=== PATIENT | female | born 1995 | race Caucasian/White ===

== ENCOUNTER → 2018-10-12 16:33 | Outpatient (CLI) | payer MEDICAID, SELFPAY | PROVIDERS: Family Provider Preventive Medicine Occupational Medicine; PCP Preventive Medicine Occupational Medicine; Referring Provider Otolaryngology Otolaryngology/Facial Plastic Surgery; Visit Provider Otolaryngology Otolaryngology/Facial Plastic Surgery | DX: J03.90 Acute tonsillitis, unspecified (principal) | CPT/HCPCS: 87070 ==

== ENCOUNTER 2018-10-17 15:44 | Emergency (ER) | payer MEDICAID, SELFPAY ==
[2018-10-17 15:44] VITALS: BP 152/74; PULSE 100; RESP 18; TEMP 36.6; O2SAT 98; BMI 36.6
--- NOTE | 2018-10-17 16:05 | RAD_ITS ---
STUDY: X-RAY CHEST REASON FOR EXAM: Female, 23 years old. Chest and back pain radiating into the arms for several months TECHNIQUE: PA and lateral views of the chest. COMPARISON: None. FINDINGS: The lungs are clear and expanded. There is no demonstrated pleural abnormality. Normal size heart. Normal mediastinum and benedict. Normal visualized pulmonary arteries. Normal visualized aortic arch and descending thoracic aorta. There are spondylosis degenerative changes of the visualized thoracic spine. Normal visualized ribs, clavicles, and shoulders. There is no demonstrated abnormality of the visualized soft tissue structures of the upper abdomen. RAD/Chest PA and Lateral IMPRESSION: Nonacute x-ray examination of the chest. Electronically Signed: Ernesto Zazueta MD at 17:38 EST , Service support ,
--- NOTE | 2018-10-17 16:05 | EKG12_ITS ---
Test Reason : CP Blood Pressure : / mmHG Vent. Rate : 101 BPM Atrial Rate : 101 BPM P-R Int : 152 ms QRS Dur : 076 ms QT Int : 340 ms P-R-T Axes : 042 008 032 degrees QTc Int : 440 ms Sinus tachycardia Otherwise normal ECG Confirmed by SMOOTH JARA, JARRED ([id number]), writer editor EUGENE FELICIANO ([id number]) on 10/19/2018 8:54:19 AM Referred By: Ankit Worrell Confirmed By:JARRED REBOLLAR MD
--- NOTE | 2018-10-17 16:14 | PCA ---
NO OLD EKG
[2018-10-17 16:15] VITALS: O2SAT 96
--- NOTE | 2018-10-17 16:32 | ED.VISSUMM ---
- ER Visit Summary Date of Service: 10/17/18 Chief Complaint: Chest pain History of Present Illness: The patient is a 23 F who presents with chest pain that has been intermittent for the past month. Patient states that last approximately an hour when it comes on. Patient describes the pain is burning, stabbing, and pressure. Patient states pain is worse over the left side of her chest but states it is always across her chest. Patient states nothing makes it better or worse. Patient admits to some shortness of breath with the pain and some mild diaphoresis. Patient also admits to subjective fever recently. Patient states her fever was 98 at home. Patient states she has a history of reflux. Patient also admits to some lightheadedness and palpitations. Patient also complains of some mild right leg pain. Patient states her right leg feels swollen. Physical Examination: Vital signs are stable. Patient is afebrile. Patient is in no acute distress. Oral mucosa is pink and moist. Neck is supple. Trachea is midline. There is no JVD noted. Heart was regular rate and rhythm. Lungs are clear and equal bilaterally. There is good respiratory effort noted. Abdomen is soft. Bowel sounds are normal. There is no tenderness. Extremities are intact x4. There is some mild tenderness over the right calf. Cranial nerves II through XII are intact. There are no focal motor or sensory deficits noted. The remaining physical exam is within normal limits. Test Results: EKG showed normal sinus rhythm with a rate of 101. There are no acute ST or T wave changes. There are no prior EKGs available for comparison. CBC was normal. Basic metabolic profile showed a slight hypokalemia of 3.4 and a hyperchloremia of 108. Troponin and d-dimer were normal. PA and lateral chest x-ray does not show any acute cardiopulmonary process. Emergency Department Course and Treatment: Patient was resting comfortably on reevaluation. Patient was instructed to follow-up with her primary care physician in 5-7 days. Patient has a HEART score of 0. Patient was advised that this is not likely to be a cardiac etiology. Patient was instructed to return if worse in any way. Patient understood and was agreeable with the plan. All questions were answered. Disposition: Discharged home Impression: Chest pain of uncertain etiology This note was generated with [employer] dictation software. It may contain incorrect words, spelling, and punctuation that were not noted in review of the chart prior to signing ED Disposition - Plan for ED Patient: Disposition: Home or Assisted Living Chief Complaint: Chest Other Diagnosis: Chest pain of uncertain etiology Instructions: ED Chest Pain Atypical Unkn Cause Referrals: Junior Hoover DO [Primary Care Provider] -
[2018-10-17 16:34] LABS: Absolute Lymphocyte Count 2.54 X10^3/ul (0.83-4.51); Basophil# 0.01 X10^3/uL; Basophil% 0.1 % (0-1); Eosinophil# 0.05 X10^3/uL; Eosinophils% 0.5 % (0-5); Hematocrit 42.9 % (37-47); Hemoglobin 13.6 g/dl (12.0-15.0); Lymphocyte # 2.54 X10^3/ul (4.0); Lymphocyte % 27.5 % (19-41); Mean Corp Hgb Conc 31.7 g/gl (32-36); Mean Corpuscular Hgb 27.9 pg (27.0-32.0); Mean Corpuscular Volume 88.1 fL (81-99); Mean Platelet Vol. 9.9 fl (6.2-12.0); Monocyte# 0.61 X10^3/uL; Monocyte% 6.6 % (0-10); Neutrophil # 6.01 X10^3/uL (2.7-7.7); Neutrophil % 65.2 % (47-70); POSITIVE COUNT NO; POSITIVE DIFFERENTIAL NO; POSITIVE MORPHOLOGY NO; Platelet Count 309 K/mm3 (150-450); RBC Distribution Width CV 13.8 % (11.6-14.6); RBC Distribution Width SD 44.5 fl (35.1-43.9); Red Blood Count 4.87 M/mm3 (4.2-5.4); White Blood Count 9.2 K/mm3 (4.4-11.0)
[2018-10-17 16:41] LABS: Prothrombin Time (Protime)PT. 13.4 SECONDS (11.7-14.9)
[2018-10-17 16:42] LABS: Partial Thromboplast Time 30.2 Seconds (24.1-36.2)
[2018-10-17] MEDS: Aspirin 81 MG TAB.CHEW 324 MG PO (16:44)
[2018-10-17 16:50] LABS: D-Dimer Quantitative (DVT/PE) < 0.27 FEU/ug/m (0.27-0.49)
[2018-10-17 16:55] LABS: Anion Gap 7 (5-15); BUN 9 mg/dL (7-18); BUN/Creat Ratio 15.2 RATIO (10-20); Calcium,Total 8.9 mg/dL (8.5-10.1); Chloride 108 mmol/L (98-107); Creatinine, Serum 0.59 mg/dL (0.55-1.02); EST Glomerular Filtration Rate 133 mL/min (>60); Est Glom Filt Rate - Afr Amer 161 mL/min (>60); Estimated Creatinine Clearance 133.44 ml/min; Glucose 101 mg/dL (74-106); Potassium 3.4 mmol/L (3.5-5.1); Sodium Level 141 mmol/L (136-145)
[2018-10-17 17:50] VITALS: PULSE 89; RESP 16; O2SAT 98
[2018-10-17 18:22] VITALS: BP 112/72; PULSE 89; RESP 16; O2SAT 98
== END 2018-10-17 18:26 | disposition home or self-care (01) ==
PROVIDERS: Emergency Provider Emergency Medicine; Family Provider Preventive Medicine Occupational Medicine; PCP Preventive Medicine Occupational Medicine
DX: R07.9 Chest pain, unspecified (principal); K21.9 Gastro-esophageal reflux disease without esophagitis; Z72.0 Tobacco use; Z79.899 Other long term (current) drug therapy
CPT/HCPCS: 71046; 80048; 84484; 85025; 85379; 85610; 85730; 93005; 99285; A4216

== ENCOUNTER → 2018-10-26 17:20 | Outpatient (CLI) | payer MEDICAID, SELFPAY ==
[2018-10-17 15:44] VITALS: BMI 36.6
--- OUTSIDE RECORDS SUMMARY | 2019-01-28 05:51 | XMS RPT_ITS ---
:1995 Author Organization OHIP Support Name Relationship Address Phone RICHARD CHURCH Unavailable Unavailable + RICHARD CHURCH Unavailable Unavailable + RICHARD CHURCH Unavailable [address] + [place] [address] UE Unavailable Unavailable Unavailable ASHLEY LUCIO Unavailable Unavailable + RICHARD CHURCH Unavailable Unavailable + LYNNETTE J CARLOS Unavailable [address] + [place] [address] ASHLEY LUCIO Unavailable Unavailable + RICHARD CHURCH Unavailable Unavailable + LYNNETTE, J CARLOS Unavailable [address] + [place] [address] RICHARD CHURCH Unavailable Unavailable + RICHARD CHURCH Unavailable [address] + [place] [address] UE Unavailable Unavailable Unavailable ASHLEY LUCIO Unavailable Unavailable + ASHLEY LUCIO Unavailable Unavailable + J CARLOS CHURCH Unavailable [address] + [place] [address] ASHLEY LUCIO Unavailable Unavailable + ASHLEY LUCIO Unavailable Unavailable + J CARLOS CHURCH Unavailable [address] + [place] [address] ASHLEY LUCIO Unavailable Unavailable + CHAMPER, ASHLEY Unavailable Unavailable + LYNNETTE, J CARLOS Unavailable [address] + [place] [address] LAMONT CHURCHADA Unavailable Unavailable + LYNNETTE RICHARD Unavailable [address] + [place] [address] UE Unavailable Unavailable Unavailable CHAMPER, ASHLEY Unavailable Unavailable + CHAMPER, ASHLEY Unavailable Unavailable + LYNNETTE, J CARLOS Unavailable [address] + [place] [address] CHAMPER, ASHLEY Unavailable Unavailable + CHAMPER, ASHLEY Unavailable Unavailable + LYNNETTE, J CARLOS Unavailable [address] + [place] [address] CHAMPER, ASHLEY Unavailable Unavailable + CHAMPER, ASHLEY Unavailable Unavailable + LYNNETTE, J CARLOS Unavailable [address] + [place] [address] CHAMPER, ASHLEY Unavailable Unavailable + CHAMPER, ASHLEY Unavailable Unavailable + LYNNETTE, J CARLOS Unavailable [address] + [place] [address] CHAMPER, ASHLEY Unavailable Unavailable + CHAMPER, ASHLEY Unavailable Unavailable + LYNNETTE, J CARLOS Unavailable [address] + [place] [address] CHAMPER, ASHLEY Unavailable Unavailable + CHAMPER, ASHLEY Unavailable Unavailable + LYNNETTE, J CARLOS Unavailable [address] + [place] [address] CHAMPER, ASHLEY Unavailable Unavailable + CHAMPER, ASHLEY Unavailable Unavailable + LYNNETTE, J CARLOS Unavailable [address] + [place] [address] CHAMPER, ASHLEY Unavailable Unavailable + CHAMPER, ASHLEY Unavailable Unavailable + JOSE CHURCHYNE Unavailable [address] + [place] [address] ASHLEY LUCIO Unavailable Unavailable + ASHLEY LUCIO Unavailable Unavailable + J CARLOS CHURCH Unavailable [address] + [place] [address] ASHLEY LUCIO Unavailable Unavailable + ASHLEY LUCIO Unavailable Unavailable + JOSE CHURCHYNE Unavailable [address] + [place] [address] ASHLEY LUCIO Unavailable Unavailable + ASHLEY LUCIO Unavailable Unavailable + J CARLOS CHURCH Unavailable [address] + [place] [address] Care Team Providers Name Role Phone Tonia, Henri Primary Care Unavailable Reese Sierra Attending Unavailable Ankit Worrell Attending Unavailable Ankit Worrell Referring Unavailable Tonia, Henri Primary Care Unavailable Ankit Worrell Attending Unavailable Ankit Worrell Referring Unavailable Tonia, Henri Primary Care Unavailable SCOTT FOX MD Attending Unavailable TONIA, HENRI Primary Care Unavailable TONIA, HENRI Primary Care Unavailable Lazara Coles MD Attending Unavailable ELIZABETH PEREA Attending Unavailable TONIA, HENRI Primary Care Unavailable TELMA FERRIS, DR. PADMINI Garcia Attending Unavailable TONIA, HENRI Primary Care Unavailable KAYLIE SHER Attending Unavailable TONIA, HENRI Primary Care Unavailable STEW FERRIS, DR. JOSEPH Pulido Attending Unavailable TONIA, HENRI Primary Care Unavailable SCOTT FOX MD Attending Unavailable TONIA, HENRI Primary Care Unavailable OZIEL MCNAMARA MD Attending Unavailable TONIA, HENRI Primary Care Unavailable DR. ROULA POMPA DO Attending Unavailable TONIA, HENRI Primary Care Unavailable LELA BYNUM DO Attending Unavailable TONIA, HENRI Primary Care Unavailable EWA GORDILLO Attending Unavailable TONIA, HENRI Primary Care Unavailable KALYANI FERRIS, DR. SHAWN Zhang Attending Unavailable TONIA, HENRI Primary Care Unavailable SCOTT FOX MD Attending Unavailable TONIA, HENRI Primary Care Unavailable SCOTT FOX MD Attending Unavailable HENRI HOOVER Primary Care Unavailable TYRONE FELICIANO DO Attending Unavailable HENRI HOOVER Primary Care Unavailable OZIEL MCNAMARA MD Attending Unavailable TONIA, HENRI Primary Care Unavailable Kelsy Self Attending Unavailable Henri Hoover Referring Unavailable Henri Hoover Primary Care Unavailable RadhaShawn ovalles Attending Unavailable Henri Hoover Primary Care Unavailable Jody Khan Attending Unavailable Henri Hoover [facility]available [facility]ending Unavailable Henri Hoover Referring Unavailable Henri Hoover Primary Care Unavailable PROBLEMS PROBLEMS No Problem Records FoundPROCEDURES PROCEDURES No Procedure Records FoundRESULTS RESULTS Observed: 10/26/2018 Status: F Source: GRAY CULTURE, THROAT 2:30 PM [facility] REPOSITORY Culture, Throat Mixed normal throat marcello. No Haemophilus, Streptococcus pneumoniae, beta-hemolytic Streptococcus or Staphylococcus aureus isolated. Performed By: #### M100.1000 #### [facility] [address] [place] [address]. [place], [address] 12 LEAD ELECTROCARDIOGRAM Observed: 10/19/2018 Status: F Source: GRAY 8:52 AM [facility] REPOSITORY [facility] Cardiovascular Services [address] [place] [address] 12 Lead EKG 10/17/18 1555 MR#: [id number] Acct: [id number] Name: RAISA CHURCH Rep #: [id number] : 1995 23 From: Aquiles Naidu MD Attending Dr: Status: DEP ER Ordering Dr: Reese Sierra DO Date: 10/17/18 Location: ED Sex: F C Admitted: Test Reason : CP Blood Pressure : / mmHG Vent. Rate : 101 BPM Atrial Rate : 101 BPM P-R Int : 152 ms QRS Dur : 076 ms QT Int : 340 ms P-R-T Axes : 042 008 032 degrees QTc Int : 440 ms Sinus tachycardia Otherwise normal ECG Confirmed by SMOOTH JARA, AQUILES ([id number]), news assignment editor EUGENE FELICIANO ([id number]) on 10/19/2018 8:54:19 AM Referred By: Ankit Worrell Confirmed By:AQUILES NAIDU MD 10/19/18 0854 Date Aquiles Naidu MD CC: Reese Sierra DO; Henri Hoover DO Signed EMERGENCY DEPARTMENT Observed: 10/17/2018 Status: F Source: GRAY SUMMARY 6:17 PM [facility] REPOSITORY [facility] Medical Records Department [address] [place] [address] Emergency Department Summary 10/17/18 1632 MR#: [id number] Acct: [id number] Name: RAISA CHURCH Rep #: [id number] : 1995 23 From: Reese Sierra DO PCP: Henri Hoover DO Status: REG ER - ER Visit Summary Date of Service: 10/17/18 Chief Complaint: Chest pain History of Present Illness: The patient is a 23 F who presents with chest pain that has been intermittent for the past month. Patient states that last approximately an hour when it comes on. Patient describes the pain is burning, stabbing, and pressure. Patient states pain is worse over the left side of her chest but states it is always across her chest. Patient states nothing makes it better or worse. Patient admits to some shortness of breath with the pain and some mild diaphoresis. Patient also admits to subjective fever recently. Patient states her fever was 98 at home. Patient states she has a history of reflux. Patient also admits to some lightheadedness and palpitations. Patient also complains of some mild right leg pain. Patient states her right leg feels swollen. Physical Examination: Vital signs are stable. Patient is afebrile. Patient is in no acute distress. Oral mucosa is pink and moist. Neck is supple. Trachea is midline. There is no JVD noted. Heart was regular rate and rhythm. Lungs are clear and equal bilaterally. There is good respiratory effort noted. Abdomen is soft. Bowel sounds are normal. There is no tenderness. Extremities are intact x4. There is some mild tenderness over the right calf. Cranial nerves II through XII are intact. There are no focal motor or sensory deficits noted. The remaining physical exam is within normal limits. Test Results: EKG showed normal sinus rhythm with a rate of 101. There are no acute ST or T wave changes. There are no prior EKGs available for comparison. CBC was normal. Basic metabolic profile showed a slight hypokalemia of 3.4 and a hyperchloremia of 108. Troponin and d-dimer were normal. PA and lateral chest x-ray does not show any acute cardiopulmonary process. Emergency Department Course and Treatment: Patient was resting comfortably on reevaluation. Patient was instructed to follow-up with her primary care physician in 5-7 days. Patient has a HEART score of 0. Patient was advised that this is not likely to be a cardiac etiology. Patient was instructed to return if worse in any way. Patient understood and was agreeable with the plan. All questions were answered. Disposition: Discharged home Impression: Chest pain of uncertain etiology This note was generated with [employer] dictation software. It may contain incorrect words, spelling, and punctuation that were not noted in review of the chart prior to signing ED Disposition - Plan for ED Patient: Disposition: Home or Assisted Living Chief Complaint: Chest Other Diagnosis: Chest pain of uncertain etiology Instructions: ED Chest Pain Atypical Unkn Cause Referrals: Henri Hoover DO [Primary Care Provider] - What to do if you have Problems For any increased pain, shortness of breath, bleeding, nausea or vomiting, chest pain, or any unexpected problems, contact your Primary Care Provider. Call [facility] ([phone]) or report to the closest Emergency Room. Call 911 if necessary. 10/17/18 4247 <Electronically signed by Reese Sierra DO> Date Reese Sierra DO Cosigner Signature (If Indicated): Date CC: Henri Hoover DO CBC W/DIFF, AUTOMATED Collected: 10/17/2018 Status: F Source: GINNA 4:12 PM [facility] REPOSITORY TYPE CODE TESTS RESULT OUT OF RANGE REFERENCE UNITS LAB L100.1000 4.4-11.0 K/mm3 Normal WBC 9.2 LAB L100.1200 4.2-5.4 M/mm3 Normal RBC 4.87 LAB L100.1300 12.0-15.0 g/dl Normal HGB 13.6 LAB L100.1400 37-47 % Normal HCT 42.9 LAB L100.1500 81-99 fL Normal MCV 88.1 LAB L100.1600 27.0-32.0 pg Normal MCH 27.9 LAB L100.1700 32-36 g/gl Low MCHC 31.7 LAB L100.1810 11.6-14.6 % Normal RDW CV 13.8 LAB L100.1820 35.1-43.9 fl High RDW SD 44.5 LAB L100.1900 150-450 K/mm3 Normal PLT 309 LAB L100.2000 6.2-12.0 fl Normal MPV 9.9 LAB L100.2100 47-70 % Normal NEUT% 65.2 LAB L100.2200 19-41 % Normal LY% 27.5 LAB L100.2300 0-10 % Normal MONO% 6.6 LAB L100.2400 0-5 % Normal EO% 0.5 LAB L100.2500 0-1 % Normal BASO% 0.1 LAB L100.2550 0.0-0.9 % Normal IM GRAN % 0.100 Result Comment: IG% - Immature Granulocytes (promyelocytes, myelocytes and metamyelocytes) > 1% indicates that a LEFT SHIFT is Present. LAB L100.2620 2.0-7.7 X10 3/uL Normal Absolute Neut 6.0 LAB L100.2720 0.83-4.51 X10 3/ul Normal Absolute Lymph 2.54 Performed By: #### L100.0100 #### [facility] [address] [facility] [address] [place], [place], [address] PROTHROMBIN TIME W/INR Collected: 10/17/2018 Status: F Source: GRAY 4:12 PM [facility] REPOSITORY TYPE CODE TESTS RESULT OUT OF RANGE REFERENCE UNITS LAB L300.4150 11.7-14.9 SECONDS Normal PROTIME 13.4 LAB L300.4200 Normal INR 1.0 Performed By: #### L300.3900, L300.4310, L300.8000 #### [facility] [address] [place], [address] PARTIAL THROMBOPLAST Collected: 10/17/2018 Status: F Source: GIN[place] TIME 4:12 PM [facility] REPOSITORY TYPE CODE TESTS RESULT OUT OF RANGE REFERENCE UNITS LAB L300.4310 24.1-36.2 Seconds Normal PTT 30.2 Performed By: #### L300.3900, L300.4310, L300.8000 #### [facility] [address] [place], [address] D-DIMER QUANTITATIVE Collected: 10/17/2018 Status: F Source: [place]INNA (DVT/PE) 4:12 PM [facility] REPOSITORY TYPE CODE TESTS RESULT OUT OF RANGE REFERENCE UNITS LAB L300.8000 0.27-0.49 FEU/ug/m Low D-DIMER < 0.27 QUANT Result Comment: NORMAL D-Dimer level (<0.50) indicates no DVT or PE. Performed By: #### L300.3900, L300.4310, L300.8000 #### [facility] [address] [place], [address] BASIC METABOLIC Collected: 10/17/2018 Status: F Source: [place] PROFILE (BMP) 4:12 PM [facility] REPOSITORY TYPE CODE TESTS RESULT OUT OF RANGE REFERENCE UNITS LAB L501.0100 74-106 mg/dL Normal GLU 101 Result Comment: Fasting Glucose result from 100 to 125 mg/dL suggests IMPAIRED HOMEOSTASIS per A.D.A. criteria. Please note revised GLUCOSE reference range effective 2017. LAB L501.1000 7-18 mg/dL Normal BUN 9 LAB L501.1100 0.55-1.02 mg/dL Normal CREAT,SERUM 0.59 Result Comment: The validity of the calculated GFR AND GFRAA in patients over 70 years has not been determined. Clinical correlation is essential. LAB L501.1110 >60 mL/min Normal EST GFR 133 Result Comment: Non- GFR Calc LAB L501.1115 >60 mL/min Normal EST GFR - AA 161 Result Comment: GFR Calc LAB L501.1255 ml/min Normal Estimated CRCL 133.44 LAB L501.1300 10-20 RATIO BUN/CRE Normal 15.2 LAB L501.2200 8.5-10 mg/dL .1 CA Normal 8.9 LAB L501.5300 136-14 mmol/L 5 NA Normal 141 LAB L501.5600 3.5-5. mmol/L Low 1 K 3.4 LAB L501.5900 98-107 mmol/L High CL 108 LAB L501.6100 21.0-3 mmol/L 2.0 CO2 Normal 26.0 LAB L501.6200 5-15 GAP Normal 7 Performed By: #### L500.2500, L501.4010 #### [facility] [address] [facility], [address] TROPONIN-I Collected: 10/17/2018 Status: F Source: GRAY 4:12 PM [facility] REPOSITORY TYPE CODE TESTS RESULT OUT OF RANGE REFERENCE UNITS LAB L501.4010 <0.045 ng/mL Normal < 0.015 TROPONIN-I Result Comment: TROPONIN-I EXPECTED VALUES <0.045 Negative 0.045 - 0.590 Consistent with Cardiac Damage > OR = 0.600 Critical Value Not every elevated troponin is indicative of MT. These values should be used with clinical judgement in examining the patient's clinical picture for diagnosis. To establish a diagnosis of MT versus myocardial injury, there must be a demonstrated rise and/or fall in the troponin values, in addition to ischemic symptoms, EKG changes, new regional wall motion abnormality, and/or angiographical evidence. PLEASE NOTE: REFERENCE RANGES EDITED 18 Performed By: #### L500.2500, L501.4010 #### [facility] [address] [place], [address] CHEST PA AND LATERAL Observed: 10/17/2018 Status: F Source: GRAY 4:06 PM [facility] REPOSITORY [facility] Imaging Services [address] [place] [address] Chest PA and Lateral MR#: [id number] Acct: [id number] Name: RAISA CHURCH Rep #: [id number] : 1995 F 23 From: Ernesto Zazueta MD PCP: Henri Hoover DO Status: REG ER Study: Chest PA and Lateral Date of Exam: 10/17/18 Exam# [id number] Ordering Dr: Reese Sierra DO STUDY: X-RAY CHEST REASON FOR EXAM: Female, 23 years old. Chest and back pain radiating into the arms for several months TECHNIQUE: PA and lateral views of the chest. COMPARISON: None. FINDINGS: The lungs are clear and expanded. There is no demonstrated pleural abnormality. Normal size heart. Normal mediastinum and benedict. Normal visualized pulmonary arteries. Normal visualized aortic arch and descending thoracic aorta. There are spondylosis degenerative changes of the visualized thoracic spine. Normal visualized ribs, clavicles, and shoulders. There is no demonstrated abnormality of the visualized soft tissue structures of the upper abdomen. RAD/Chest PA and Lateral IMPRESSION: Nonacute x-ray examination of the chest. Electronically Signed: Ernesto Zazueta MD at 17:38 EST , Service support , CC: Reese Sierra DO; Henri Hoover DO Steel Tester: Signed XR TIBIA/FIBULA 2 VIEWS Observed: 10/14/2018 Status: F Source: [facility] 1:20 AM [facility] REPOSITORY ORIGINAL XR TIBIA/FIBULA 2 VIEWS RIGHT CLINICAL STATEMENT: pain. Injury COMPARISON: None FINDINGS: No acute fracture or dislocation is identified. There is no radiopaque foreign body. IMPRESSION: No acute fracture or dislocation. Interpreted By: [place] DO Preliminary Report By: [place] DO Electronically Signed By: South Fall DO Dictated Date: 10/14/2018 1:59:52 AM Prelim Date: 10/14/2018 1:59:52 AM Sign Date: 10/14/2018 2:00:24 AM UA Collected: 10/14/2018 Status: F Source: [facility] 1:02 AM [facility] EMERGENCY DEPARTMENT REPOSITORY TYPE CODE TESTS RESULT OUT OF RANGE REFERENCE UNITS LAB SPCUA(OSWALDO NC) UA Specimen Type Clean Catch LAB CLRUA(OSWALDO NC) UA Color Yellow LAB APPUA(OSWALDO Clear NC) UA Appear Clear LAB SGUA(LOIN C) UA Spec Unknown Grav >=1.030 LAB GLUA(LOIN Negative mg/dL C) UA Glucose Negative LAB BILUA(OSWALDO Negative NC) UA Bili Unknown Small LAB KETUA(OSWALDO Negative mg/dL NC) UA Ketones Unknown 15 LAB BLDUA(OSWALDO Negative NC) UA Blood Unknown Moderate-Inta ct LAB PHUA(LOIN C) UA pH 6.0 LAB PROUA(OSWALDO Negative mg/dL NC) UA Protein Unknown 100 LAB UROUA(OSWALDO E.U./dL NC) UA Urobilinogen 0.2 LAB NITUA(OSWALDO Negative NC) UA Nitrite Negative LAB LEUUA(OSWALDO Negative NC) UA Leuk Est Negative Performed By: #### UA, PREGU, UAMICAO #### [address] [address] PREGU Collected: 10/14/2018 Status: F Source: [facility] [place] 1:02 [facility] REPOSITORY TYPE CODE TESTS RESULT OUT OF RANGE REFERENCE UNITS LAB PREGU(LOIN C) Test Negative Urine LAB PRUG1(LOIN C) Unknown test HCG not (u) int detected. Performed By: #### UA, PREGU, UAMICAO #### [address] [address] .URINALYSIS MICROSCOPIC Collected: 10/14/2018 Status: F Source: [place] ([place]) 1:02 [facility] REPOSITORY TYPE CODE TESTS RESULT OUT OF RANGE REFERENCE UNITS LAB WBCUA(LOIN None Seen /hpf C) Unknown UA WBC 5-10 LAB RBCUA(LOIN None Seen /hpf C) Unknown UA RBC 0-5 LAB EPIUA(LOIN None Seen /hpf C) Unknown UA Squam Epithelial 10-15 LAB BACUA(LOIN /hpf C) Unknown UA Bacteria Trace Performed By: #### UA, PREGU, UAMICAO #### [address] [address] INITIAL VISIT Observed: 10/13/2018 Status: UNK Source: [place] ([facility]) 12:19 PM [facility] Chief Complaint Abdominal pain, rectal bleeding, change in bowel habits History of Present Illness 23-year-old female presents today as a new patient for evaluation of several different GI complaints. Patient has presented to [facility] emergency room at least 8 times in the last month and a west f for evaluation of abdominal pain and chest pain. Each workup thus far has been negative. Most recent visit revealed an unremarkable chest x-ray as well as normal CBC, CMP, urinalysis,, cardiac workup, and lipase. Abdominal CT scan last month revealed a left ovarian cysts but was otherwise unremarkable. Patient states that her abdominal pain has occurred for the last several months and is located per iumbilically. This is described as constant cramping worsened postprandially. This occasionally will improve after a bowel movement. Patient had 1 nocturnal episode of extreme abdominal pain and mucus-l matteo diarrhea. Separate from this, she has had 3 occasions of bright red blood located in the commode and on the toilet tissue. There was no evidence of clots. Blood was not mixed with the stool. She has been experiencing constipation recently accompanied by straining. There is no pain with defecation. She is currently having approximately 2-3 bowel movements a week whereas previously she was having at least 1-2 bowel movements daily. She has not altered her diet or exercise regimen and has a lost approximately 8 pounds in 2 months. Her appetite is still good and she denies early satiety. She reports moderate daily heartburn and regurgitation for the last month or so and was started on Pepcid per her last ER visit. She states that this has improved her heartburn mildly. Lying down worsens her reflu x. She denies epigastric pain, dysphagia, dyspepsia, or melena. Patient had 1 episode of nausea and vomiting in addition to extreme abdominal pain and a migraine. She is not nauseous right now and has n ot reported further episodes of vomiting. Patient was given a prescription for naproxen 500 mg that she has been taking 3 times daily with food for the past week. Patient expresses extreme concern for c olon cancer or inflammatory bowel disease. There is no immediate family history of colon cancer. She has never undergone endoscopy in the past. Review of Systems Const: Reports fatigue and weight loss but denies fevers. CV: Reports chest pain but denies pacemaker, palpitations and valvular heart disease. Resp: Denies cough, sleep apnea, SOB and snoring. GI: Denies symptoms other than stated above. Musculo: Denies joint pain and muscle pain. Skin: Reports and rash but denies hives. Neuro: Denies seizures and stroke. Psych: Denies anxiety and depression. Endocrine: Denies intolerance to cold, hot flashes and impaired glucose tolerance. Kumar/Lymph: Denies anemia, blood transfusions, chemotherapy, enlarged lymph nodes and radiation treatment of any kind. Active Problems Change in bowel habits (787.99) (R19.4) Chronic abdominal pain (789.00,338.29) (R10.9,G89.29) Constipation (564.00) (K59.00) GERD (gastroesophageal reflux disease) (530.81) (K21.9) Obesity (278.00) (E66.9) Rectal bleeding (569.3) (K62.5) Past Medical History History of Cystadenoma of left ovary (V13.89) (Z86.018) Surgical History History of Tubal ligation Family History Family history of Alive and well Family history of Alive and well Family history of Alive and well Family history of Alive and well Social History Daily caffeine consumption Former smoker (V15.82) (Z87.891) No illicit drug use Occasional alcohol use Allergies No Known Drug Allergies Recorded By: Marline Amaya; 10/13/2018 11:06:45 AM Current Meds Pepcid 20 MG Oral Tablet; Therapy: (Recorded:[id number]) to Recorded Dispense: 0 Days ; #: Sufficient; Refill: 0;For: Rectal bleeding; RANDI = N; Record; Last Updated By: Jody Kahn; 10/13/2018 11:58:41 AM Naproxen 500 MG Oral Tablet; TAKE 1 TABLET 3 TIMES DAILY NEEDED; Therapy: (Recorded:12Lyv2172) to Recorded Dispense: 0 Days ; #: Sufficient Tablet; Refill: 0; RANDI = N; Record; Last Updated By: Marline Amaya; 10/13/2018 11:06:45 AM Ondansetron 4 MG Oral Tablet Disintegrating; Therapy: (Recorded:[id number]) to Recorded Dispense: 0 Days ; #: Sufficient Tablet; Refill: 0; RANDI = N; Record; Last Updated By: Marline Amaya; 10/13/2018 11:06:45 AM Vitals Vital Signs Recorded: [id number] 11:00AM Zonnizwadil15 F Heart Rate68 Dufyyqlv802 Rwfxqkcoj51 Height5 ft 5 in Wktvso387 lb BMI Imyhibmcoo08.11 BSA Calculated2.05 Physical Exam Const: Vital signs reviewed. ENMT: Oral mucosa moist with no thrush and no mucositis. Neck: Supple and symmetric. Thyroid is normal in size and texture. Resp: Respiration rate is normal. Clear to auscultation. CV: Rhythm is regular. No heart murmur appreciated. Carotids 2+ and equal bilaterally, without bruits. Femorals 2+ and equal bilaterally, without bruits. Abdomen: Positive bowel sounds in all quadrants. No bruits. Normal to percussion. Palpation of the abdomen reveals softness and mild bilateral lower quadrant tenderness. No distension or fluid wave. No abdominal masses. No hernias. No palpable hepatosplenomegaly. Anus/Perineum/Rectum: Exam deferred. Lymph: No visible or palpable cervical lymphadenopathy. Inguinal nodes not palpable. Skin: Dry and warm with no nodularity or rash. Psych: Affect is normal. Alert and oriented x3. Neuro: Cranial nerves intact. No focal motor defects. Results/Data 1. [facility] emergency room 10/10/18: WBC 8.4, hemoglobin 13.3, hematocrit 39.7, MCV 84.3, platelet 294. Sodium 140, potassium 3.9, glucose 96 BMI B when 18, creatinine 0.77. Total bilirubin 0.2, a lkaline phosphatase 98, ALTs 15, AST 21. Lipase 84. D-dimer <200. Troponin <0.020. Negative urinalysis. Negative strep. Chest x-ray no acute abnormality. 2. [facility] emergency room : Abdominal pelvic CT scan without contrast no obstructive uropathy, benign-appearing 3.1 cm left ovarian cyst. Diagnoses/Problems Obesity (278.00) (E66.9) Chronic abdominal pain (789.00,338.29) (R10.9,G89.29) Change in bowel habits (787.99) (R19.4) Constipation (564.00) (K59.00) GERD (gastroesophageal reflux disease) (530.81) (K21.9) Rectal bleeding (569.3) (K62.5) Orders Change in bowel habits, Chronic abdominal pain, Rectal bleeding Start: [id number]/Electrolytes 236 GM Oral Solution Reconstituted; TAKE DIRECTED Rx By: Jody Khan; Dispense: 0 Days ; #:1 X 4000 ML Bottle; Refill: 0;For: Change in bowel habits, Chronic abdominal pain, Rectal bleeding; RANDI = N; Verified Transmission to [facility]/PHARMACY #4605; Las t Updated By: ACE Portal; 10/13/2018 11:59:14 AM Colonoscopy; Status:Hold For - Scheduling; Requested for:[id number]; Perform:Non Facility; Due:11Jan2019;Ordered; Stat; For:Change in bowel habits, Chronic abdominal pain, Rectal bleeding; Ordered By:Jody Khan; GI Mental Competence : Yes-pt mentally competent to provide consent Indications : Abdominal Pain Chronic abdominal pain Start: Dicyclomine HCl - 20 MG Oral Tablet; 1 TAB 30 MINUTES BEFORE MEALS NEEDED FOR BOWEL SPASM Rx By: Jody Khan; Dispense: 0 Days ; #:90 Tablet; Refill: 3;For: Chronic abdominal pain; RANDI = N; Verified Transmission to [facility]/PHARMACY #4605; Last Updated By: ACE Portal; 10/13/2018 11:59:13 AM GERD (gastroesophageal reflux disease) Start: Omeprazole 20 MG Oral Tablet Delayed Release; TAKE 1 TABLET Daily 30 minutes before breakfast Rx By: Jody Khan; Dispense: 30 Days ; #:30 Tablet; Refill: 3;For: GERD (gastroesophageal reflux disease); RANDI = N; Verified [facility] to [facility]; Last Updated By: ACE Portal; 10/13/2018 11:59:12 AM SocHx: Former smoker Tobacco Use Screening; Status:Complete; Done: [id number] Perform:Not Applicable;Ordered; For:SocHx: Former smoker; Ordered By:Marline Amaya; Patient Discussion/Summary 1. Start omeprazole 20 mg 30 minutes before breakfast for heartburn. May also take Pepcid as needed at nighttime for breakthrough reflux symptoms. Advised to limits use of naproxen for severe abdominal pain. 2. Lifestyle changes to help alleviate heartburn/reflux were discussed. These include avoiding spicy and greasy foods, tomato based products, mint and caffeine. Alcohol and smoking should be avoided. Pa brent should keep at least 3 hours between eating and going to sleep. Being of a normal weight helps decrease heartburn symptoms. 3. Start dicyclomine 20 mg 30 minutes before meals as needed for abdominal cramping. 4. Begin using MiraLAX one capful in 8 ounces of water, juice, or Gatorade daily. This products is [id number]. You can adjust this product if you are having severe constipation by increasing it to twice a day. If you are experiencing loose stool, decrease amount to one half capful daily or one capful every other day. 5. Begin using one heaping tablespoon of Benefiber in 8 ounces of water daily by mixing and drinking quickly. This product is [id number]. 5. The diagnosis and evaluation options were discussed with the patient. A colonoscopy was recommended and scheduled. The procedure and sedation were discussed. Risks including but not limited to bleedi ng, perforation, reaction to medication, missed polyps, damage to other organs, and adverse cardiopulmonary events were discussed. The office endoscopy forms were reviewed and signed. The patients quest ions were answered. Patient was instructed about not driving the day of the exam after being sedated. 6. The patient appears medically stable for sedation and endoscopy. 7. A healthy, low fat diet and regular exercise is recommended for weight reduction. Signatures Electronically signed by : Jody Khan PA-C; Oct 13 2018 12:19PM EST (Author) Observed: 10/12/2018 Status: F Source: GRAY CULTURE, THROAT 4:38 PM [facility] REPOSITORY Culture, Throat Mixed normal throat marcello. No Haemophilus, Streptococcus pneumoniae, beta-hemolytic Streptococcus or Staphylococcus aureus isolated. Performed By: #### M100.1000 #### [facility] [place], [address] XR CHEST 2 VIEWS Observed: 10/10/2018 Status: F Source: [place] 7:31 PM [facility] EM[facility]ENC[facility]PART[facility] REPOSITORY ORIGINAL XR CHEST 2 VIEWS CLINICAL STATEMENT: Chest pain COMPARISON: Chest radiograph 09/21/2018 FINDINGS: The cardiomediastinal silhouette is within normal limits and unchanged. No consolidation, pleural effusion, pneumothorax, or vascular congestion is seen. No acute osseous findings. IMPRESSION: No acute radiographic findings. I have personally reviewed the images of this examination and agree with the resident's findings and interpretation. Interpreted By: Bernard Melgar MD Preliminary Report By: Woody Cage DO Electronically Signed By: Bernard Melgar MD Dictated Date: 10/10/2018 7:33:40 PM Prelim Date: 10/10/2018 7:34:35 PM Sign Date: 10/10/2018 7:51:09 PM PREGU Collected: 10/10/2018 Status: F Source: [facility] 7:02 [facility] [place] REPOSITORY TYPE CODE TESTS RESULT OUT OF RANGE REFERENCE UNITS LAB PREGU(LOIN C) Test Negative Urine LAB PRUG1(LOIN C) Unknown test HCG not (u) int detected. Performed By: #### PREGU #### [address] [address] UA Collected: 10/10/2018 Status: F Source: [facility] 7:02 [facility] [place] REPOSITORY TYPE CODE TESTS RESULT OUT OF REFERENCE UNITS RANGE LAB SPCUA(LOIN C) UA Specimen Type Clean Catch LAB CLRUA(LOIN C) UA Color Yellow LAB APPUA(LOIN Clear C) UA Appear Clear LAB SGUA(LOINC ) UA Spec Grav 1.020 LAB GLUA(LOINC Negative mg/dL ) UA Glucose Negative LAB BILUA(LOIN Negative C) UA Bili Negative LAB KETUA(LOIN Negative mg/dL C) UA Ketones Negative LAB BLDUA(LOIN Negative C) UA Blood Negative LAB PHUA(LOINC ) UA pH 7.0 LAB PROUA(LOIN Negative mg/dL C) UA Protein Negative LAB UROUA(LOIN E.U./dL C) UA Urobilinogen 0.2 LAB NITUA(LOIN Negative C) UA Nitrite Negative LAB LEUUA(LOIN Negative C) UA Leuk Est Negative Performed By: #### UA, UAMICAO #### [address] [address] .URINALYSIS MICROSCOPIC Collected: 10/10/2018 Status: F Source: [place] () 7:02 [facility] REPOSITORY TYPE CODE TESTS RESULT OUT OF REFERENCE UNITS RANGE LAB WBCUA(LOIN None Seen /hpf C) UA WBC None Seen LAB RBCUA(LOIN None Seen /hpf C) UA RBC None Seen LAB EPIUA(LOIN None Seen /hpf C) UA Squam Epithelial None Seen Performed By: #### UA, UAMICAO #### [place] [id number] [place], [place] [address] CBC Collected: 10/10/2018 Status: F Source: [facility] 6:47 [facility] [place] REPOSITORY TYPE CODE TESTS RESULT OUT OF REFERENCE UNITS RANGE LAB WBC(LOINC) 4.60-10.80 10 3/mcL WBC 8.40 LAB RBCCT(LOINC 4.20-5.40 10 6/mcL ) RBC 4.70 LAB HGB(LOINC) 12.0-16.0 G/dL Hgb 13.3 LAB HCT(LOINC) 37.0-47.0 % Hct 39.7 LAB MCV(LOINC) 80.0-94.0 fL MCV 84.3 LAB MCH(LOINC) 27.0-31.2 pg MCH 28.2 LAB MCHC(LOINC) 33.0-37.0 G/dL MCHC 33.4 LAB RDW(LOINC) 11.5-14.5 % RDW 14.0 LAB PLT(LOINC) 130-400 10 3/mcL Platelet 294 LAB MPV(LOINC) 7.4-10.4 fL MPV 8.1 Performed By: #### CBC, ADIFF, ANEU, DIMER #### [address] [address] #### TROP, LIP, CMP, GFR #### [place] [address] .AUTO DIFF Collected: 10/10/2018 Status: F Source: [facility] 6:47 [facility] [place] REPOSITORY TYPE CODE TESTS RESULT OUT OF REFERENCE UNITS RANGE LAB NIEVES(LOINC) 37.0-80.0 % Neutrophil % 60.9 LAB LYM(LOINC) 10.0-50.0 % Lymphocyte % 31.5 LAB MON(LOINC) 1.7-13.0 % Monocyte % 6.2 LAB EO(LOINC) 0.0-7.0 % Eosinophil % 1.0 LAB BAS(LOINC) 0.0-2.5 % Basophil % 0.4 LAB ABLYM(LOIN 0.77-3.85 10 3/mcL C) Lymphocyte, 2.70 Absolute LAB XIN(LOINC 0.15-1.00 10 3/mcL ) Monocyte, 0.50 Absolute LAB AEOS(LOINC 0.00-0.40 10 3/mcL ) Eosinophil, 0.10 Absolute LAB ABAS(LOINC 0.00-0.19 10 3/mcL ) Basophil, 0.00 Absolute Performed By: #### CBC, ADIFF, ANEU, DIMER #### [place] [address] #### TROP, LIP, CMP, GFR #### [place] [address] .NEUABS Collected: 10/10/2018 Status: F Source: [facility] 6:47 [facility] [place] REPOSITORY TYPE CODE TESTS RESULT OUT OF REFERENCE UNITS RANGE LAB ANEU(LOINC) 2.85-6.16 10 3/mcL Neutrophil, 5.10 Absolute Performed By: #### CBC, ADIFF, ANEU, DIMER #### [place] [address] #### TROP, LIP, CMP, GFR #### [place] [address] TROP Collected: 10/10/2018 Status: F Source: [facility] 6:47 [facility] [place] REPOSITORY TYPE CODE TESTS RESULT OUT OF REFERENCE UNITS RANGE LAB TROP(LOINC) 0.000-0.040 ng/mL Troponin <0.020 Result Comment: Troponin I reference range: 0.00-0.040 ng/mL Negative and non-diagnostic. >0.040 ng/mL Consistent with cardiac damage, increased clinical risk and possibility of myocardial infarction. Serial measurements, a rise & fall in test results, clinical history, appropriate symptoms and/or ECG changes may help assess possibility of MT. *Other non-acute coronary syndrome conditions such as CHF, myocarditis, pulmonary emboli, sepsis and cardiac surgery could result in myocardial damage and increased troponin levels. Performed By: #### CBC, ADIFF, ANEU, DIMER #### [place] [id number] #### TROP, LIP, CMP, GFR #### [place] [address] LIP Collected: 10/10/2018 Status: F Source: [facility] 6:47 PM [facility] EMERGENCY [facility]PARTMENT REPOSITORY TYPE CODE TESTS RESULT OUT OF REFERENCE UNITS RANGE LAB LIP(LOINC) 73-393 U/L Lipase Level 84 Performed By: #### CBC, ADIFF, ANEU, DIMER #### [place] [id number] [place], [place] [address] #### TROP, LIP, CMP, GFR #### [place] [id number] [place] [address] CMP Collected: 10/10/2018 Status: F Source: [facility] 6:47 PM [facility] EMERGENC[facility]PARTMENT REPOSITORY TYPE CODE TESTS RESULT OUT OF REFERENCE UNITS RANGE LAB GLU(LOINC) 70-105 mg/dL Glucose Level 96 LAB NA(LOINC) 136-145 mmol/L Sodium Level 140 LAB K(LOINC) 3.5-5.1 mmol/L Potassium Level 3.9 LAB CL(LOINC) 98-107 mmol/L Chloride 104 LAB CO2(LOINC) 22-29 mmol/L CO2 26 LAB EBAL(LOINC mEq/L ) Electrolyte Balance 10.0 LAB BUN(LOINC) 7-18 mg/dL BUN 18 LAB CRE(LOINC) 0.55-1.02 mg/dL Creatinine Lvl (s) 0.77 LAB BC(LOINC) 7-27 ratio BUN/Creatinine 23 Ratio LAB CA(LOINC) 8.4-10.2 mg/dL Calcium Lvl 9.3 LAB PROT(LOINC 6.4-8.2 G/dL ) Total Protein 6.9 LAB ALB(LOINC) 3.5-5.0 G/dL Albumin Level 4.2 LAB GLB(LOINC) G/dL Globulin 2.7 LAB AG(LOINC) 1.1-2.5 ratio A/G Ratio 1.6 LAB BILT(LOINC 0.2-1.0 mg/dL ) Bili Total 0.2 LAB AP(LOINC) 40-135 U/L Alk Phos 98 LAB AST(LOINC) 10-40 U/L AST/SGOT 21 LAB ALT(LOINC) 10-35 U/L ALT/SGPT High 50 Performed By: #### CBC, ADIFF, ANEU, DIMER #### [place] [id number] [place], [place] [address] #### TROP, LIP, CMP, GFR #### [place] [id number] [place] [address] .GFR Collected: 10/10/2018 Status: F Source: [facility] 6:47 PM [facility] EMERGENCY [facility]PARTMENT REPOSITORY TYPE CODE TESTS RESULT OUT OF REFERENCE UNITS RANGE LAB GFRAA(LOINC ml/min/1.73 ) sqm GFR 113 [place] Result Comment: GFR Population mean for , Non- Americans Ages 20-29 = 116 mL/min/1.73 sq.m. Ages 30-39 = 107 mL/min/1.73 sq.m. Ages 40-49 = 99 mL/min/1.73 sq.m. Ages 50-59 = 93 mL/min/1.73 sq.m. Ages 60-69 = 85 mL/min/1.73 sq.m. Ages 70+ = 75 mL/min/1.73 sq.m. Chronic Kidney Disease: Less than 60 mL/min/1.73 square meters End Stage Renal Disease: Less than 15 mL/min/1.73 square meters LAB GFRNO(LOINC) ml/min/1.73sqm GFR Non- 93 Result Comment: GFR Population mean for , Non- Americans Ages 20-29 = 116 mL/min/1.73 sq.m. Ages 30-39 = 107 mL/min/1.73 sq.m. Ages 40-49 = 99 mL/min/1.73 sq.m. Ages 50-59 = 93 mL/min/1.73 sq.m. Ages 60-69 = 85 mL/min/1.73 sq.m. Ages 70+ = 75 mL/min/1.73 sq.m. Chronic Kidney Disease: Less than 60 mL/min/1.73 square meters End Stage Renal Disease: Less than 15 mL/min/1.73 square meters Performed By: #### CBC, ADIFF, ANEU, DIMER #### [place] [address] [address] #### TROP, LIP, CMP, GFR #### [address] [address] DIMER Collected: 10/10/2018 Status: F Source: [facility] 6:47 PM [facility] EMERGENC[facility]PARTMENT REPOSITORY TYPE CODE TESTS RESULT OUT OF RANGE REFERENCE UNITS LAB DIMER(LOINC 0-230 ng/mL D-DU ) D-Dimer <200 Result Comment: The result of the D-Dimer test should be evaluated in the context of all the clinical and laboratory data available. In those instances where the laboratory result does not agree with the clinical evaluation, additional tests should be performed accordingly. If the D-Dimer result is used to exclude DVT or PE, the recommended cutoff value is less than 230 ng/mL. The D-Dimer result should not be used alone to rule in DVT/PE, but should be used in conjunction with a clinical pretest probability (PTP)assessment model to exclude venous thromboembolism (VTE) in outpatients suspected of deep venous thrombosis (DVT) and pulmonary embolism (PE). Performed By: #### CBC, ADIFF, ANEU, DIMER #### [place] [address] #### TROP, LIP, CMP, GFR #### [address] [address] Observed: 10/10/2018 Status: F Source: [facility] BSA 6:47 PM [facility] EMERGENCY [facility]PARTMENT REPOSITORY . MICRO - Microbiology PROCEDURE: Beta Strep Antigen with Cult if Ind [*1] SOURCE: Throat BODY SITE: COLLECTED DATE/TIME: 10/10/2018 18:47 EST RECEIVED DATE/TIME: 10/10/2018 18:52 EST START DATE/TIME: 10/10/2018 18:53 EST FREE TEXT SOURCE: FINAL REPORTS Final Report [] Verified Date/Time/Personnel: 10/10/2018 19:13 EST Antigen Screen: Negative for Group A Strep. Culture confirmation to follow. COMMENT: Recommendations suggest that all negative results be confirmed with culture. Performing Locations *1: This test was performed at: [address] Performed By: #### BSA #### [place] [address] Observed: 10/10/2018 Status: F [facility] REPOSITORY . MICRO - Microbiology PROCEDURE: Culture Beta Strep Only [O1 *1] SOURCE: Throat BODY SITE: COLLECTED DATE/TIME: 10/10/2018 18:28 EST RECEIVED DATE/TIME: 10/10/2018 19:13 EST START DATE/TIME: 10/10/2018 19:13 EST FREE TEXT SOURCE: FINAL REPORTS Final Report [] Verified Date/Time/Personnel: 10/13/2018 07:37 EST No Beta Strep isolated at 48hrs. PRELIMINARY REPORTS Preliminary Report [] Verified Date/Time/Personnel: 10/12/2018 08:07 EST No beta Strep isolated at 24 hours. Order Comments O1: Culture Beta Strep Only Order added by [email or web address] Performing Locations *1: This test was performed at: [facility], [address] [place] [address], [address] [place] [address] Performed By: #### BSO #### [place] [address] CT ABDOMEN/PELVIS W/O Observed: 10/08/2018 Status: F Source: [place] CONTRAST 8:30 PM [facility] REPOSITORY ORIGINAL CT ABDOMEN/PELVIS W/O CONTRAST CLINICAL STATEMENT: RIGHT flank pain for one day COMPARISON: None TECHNIQUE: Axial images were obtained from the lung bases through the pubic symphysis. Coronal reformatted images were generated from the axial dataset. This exam was performed according to our [facility] dose optimization program, and includes the following measures where applicable: automated exposure control, adjustment of the mAs and/or kVp according to patient size and/or exam, and an iterative reconstruction algorithm. FINDINGS: The lung bases are clear. There is a punctate calcified granuloma at the RIGHT lung base. The kidneys are symmetric in size and are without calculi, hydronephrosis, or perinephric stranding. The ureters are normal. No bladder calculi are visible. The visualized liver and spleen are unremarkable for noncontrast examination. The noncontrasted gallbladder, pancreas and adrenal glands are normal. The visualized esophagus and stomach are within normal limits. The small and large bowel are normal in course and caliber. The appendix is normal. There is no free fluid or free air. No adenopathy is identified. The uterus and adnexa are within normal limits for patient's age. There is a benign appearing left-sided ovarian cyst measuring 3.1 cm. The RIGHT adnexa is normal. There are no suspicious osseous lesions. There are Schmorl nodes at the superior endplates of the L1 and L2 vertebral bodies. IMPRESSION: 1. No obstructive uropathy. 2. Benign-appearing left ovarian cyst measuring 3.1 cm. Follow- up ultrasound in 6-12 weeks is recommended per size criteria as below. Pre-menopause (< 50 years if LMP unknown): <3 cm: No follow-up imaging recommended >3 cm - <5 cm: US f/u 6-12 weeks Recommendations based on the 2013 ACR White Paper for Managing Incidental Adnexal Findings on Abdominal and Pelvic CT and MRI: J Am Akilah Radiol 2013;10:675-681 I have personally reviewed the images of this examination and agree with the resident's findings and interpretation. Interpreted By: Charlie Denson Preliminary Report By: Echo Mendez MD Electronically Signed By: Charlie Denson Dictated Date: 10/08/2018 9:05:41 PM Prelim Date: 10/08/2018 9:15:30 PM Sign Date: 10/08/2018 9:46:35 PM UA Collected: 10/08/2018 Status: F Source: [facility] 7:56 PM [facility] EMERGENCY DEPARTMENT REPOSITORY TYPE CODE TESTS RESULT OUT OF RANGE REFERENCE UNITS LAB SPCUA(OSWALDO NC) UA Specimen Type Clean Catch LAB CLRUA(OSWALDO NC) UA Color Yellow LAB APPUA([place]DO Clear NC) UA Appear Unknown Cloudy LAB SGUA(LOIN C) UA Spec Unknown Grav >=1.030 LAB GLUA(LOIN Negative mg/dL C) UA Glucose Negative LAB BILUA(OSWALDO Negative NC) UA Bili Negative LAB KETUA([place]WALDO Negative mg/dL NC) UA Ketones Negative LAB BLDUA([place]DO Negative NC) UA Blood Negative LAB PHUA(LOIN C) UA pH 6.0 LAB PROUA(OSWALDO Negative mg/dL NC) UA Protein Trace LAB UROUA(OSWALDO E.U./dL NC) UA Urobilinogen 0.2 LAB NITUA(OSWALDO Negative NC) UA Nitrite Negative LAB LEUUA(OSWALDO Negative NC) UA Leuk Est Negative Performed By: #### UA, PREGU, UAMICAO #### [place] [address] [address] PREGU Collected: 10/08/2018 Status: F Source: [facility] 7:56 PM [facility] EMERGENCY DEPARTMENT REPOSITORY TYPE CODE TESTS RESULT OUT OF RANGE REFERENCE UNITS LAB PREGU(LOIN C) Test Negative Urine LAB PRUG1(LOIN C) Unknown test HCG not (u) int detected. Performed By: #### DANDRE CHAPMAN UAMICLEANNA #### [place] [address] [address] .URINALYSIS MICROSCOPIC Collected: 10/08/2018 Status: F Source: [place]) 7:56 PM [facility] REPOSITORY TYPE CODE TESTS RESULT OUT OF RANGE REFERENCE UNITS LAB WBCUA(LOIN None Seen /hpf C) Unknown UA WBC 0-5 LAB RBCUA(LOIN None Seen /hpf C) UA RBC None Seen LAB EPIUA(LOIN None Seen /hpf C) Unknown UA Squam Epithelial 10-15 Performed By: #### DANDRE CHAPMAN UAMICLEANNA #### [place] [id number] [place], [place] [address] CBC Collected: 10/07/2018 Status: F Source: [facility] 5:25 PM [facility] EMERGENCY DEPARTMENT REPOSITORY TYPE CODE TESTS RESULT OUT OF REFERENCE UNITS RANGE LAB WBC(LOINC) 4.60-10.80 10 3/mcL WBC 9.60 LAB RBCCT(LOINC 4.20-5.40 10 6/mcL ) RBC 5.05 LAB HGB(LOINC) 12.0-16.0 G/dL Hgb 13.9 LAB HCT(LOINC) 37.0-47.0 % Hct 42.7 LAB MCV(LOINC) 80.0-94.0 fL MCV 84.5 LAB MCH(LOINC) 27.0-31.2 pg MCH 27.4 LAB MCHC(LOINC) 33.0-37.0 G/dL Low MCHC 32.4 LAB RDW(LOINC) 11.5-14.5 % RDW 14.2 LAB PLT(LOINC) 130-400 10 3/mcL Platelet 346 LAB MPV(LOINC) 7.4-10.4 fL MPV 8.7 Performed By: #### CBC ADIFF, ANEU #### [address] [address] .AUTO DIFF Collected: 10/07/2018 Status: F Source: [facility] 5:25 PM [facility] EMERGENC[facility] DEPARTMENT REPOSITORY TYPE CODE TESTS RESULT OUT OF REFERENCE UNITS RANGE LAB NIEVES(LOINC) 37.0-80.0 % Neutrophil % 61.2 LAB LYM(LOINC) 10.0-50.0 % Lymphocyte % 31.1 LAB MON(LOINC) 1.7-13.0 % Monocyte % 6.4 LAB EO(LOINC) 0.0-7.0 % Eosinophil % 0.9 LAB BAS(LOINC) 0.0-2.5 % Basophil % 0.4 LAB ABLYM(LOIN 0.77-3.85 10 3/mcL C) Lymphocyte, 3.00 Absolute LAB XIN(LOINC 0.15-1.00 10 3/mcL ) Monocyte, 0.60 Absolute LAB AEOS(LOINC 0.00-0.40 10 3/mcL ) Eosinophil, 0.10 Absolute LAB ABAS(LOINC 0.00-0.19 10 3/mcL ) Basophil, 0.00 Absolute Performed By: #### CBCSILVINA, ANEU #### [address] [address] .NEUABS Collected: 10/07/2018 Status: F Source: [facility] 5:25 PM [facility] EM[facility]GENC[facility]PARTMENT REPOSITORY TYPE CODE TESTS RESULT OUT OF REFERENCE UNITS RANGE LAB ANEU(LOINC) 2.85-6.16 10 3/mcL Neutrophil, 5.90 Absolute Performed By: #### CBC, SILVINA, ANEU #### [address] [address] XR SHOULDER MINIMUM 2 Observed: 09/28/2018 Status: F Source: [facility] VIEWS RIGHT 4:51 PM [facility] EM[facility]PART[facility] REPOSITORY ORIGINAL XR SHOULDER 3 VIEWS RIGHT CLINICAL STATEMENT: Pain Rt Shoulder/chest. COMPARISON: None FINDINGS: No fracture or dislocation is identified. The included thoracic structures are normal. The acromioclavicular joint is normal. IMPRESSION: No acute fracture or dislocation. Interpreted By: Jennifer Luciano MD Preliminary Report By: Jennifer Luciano MD Electronically Signed By: Jennifer Luciano MD Dictated Date: 09/28/2018 4:54:46 PM Prelim Date: 09/28/2018 4:54:46 PM Sign Date: 09/28/2018 4:55:39 PM XR CHEST 1 VIEW Observed: 09/21/2018 Status: F Source: [facility] 3:20 PM [facility] EM[facility]ENC[facility]PARTMENT REPOSITORY ORIGINAL XR CHEST 1 VIEW CLINICAL STATEMENT: Chest pain COMPARISON: 07/17/2017 FINDINGS:The heart is normal in size. No vascular congestion, pneumothorax, focal consolidation or pleural effusion is seen. IMPRESSION:No acute process. Interpreted By: Jennifer Luciano MD Preliminary Report By: Jennifer Luciano MD Electronically Signed By: Jennifer Luciano MD Dictated Date: 09/21/2018 3:24:58 PM Prelim Date: 09/21/2018 3:24:58 PM Sign Date: 09/21/2018 3:25:34 PM ALLERGIES ALLERGIES DATE TYPE / CODE NAME / CODE REACTION SEVERITY SOURCE 10/17/2018 Drug No Known Unknown [facility] Allergy/4160 Allergies/F00 [facility] 82327(SNOMED 3399991(RXNOR Repository CT) M) ENCOUNTERS ENCOUNTERS ADMIT/DISCHARGE ACCOUNT NUMBER ADMITTING ENCOUNTER LOCATION SOURCE CLASS 11/18/[id number] Repository 11/01/[id number] Repository 10/26/2018 [id number] [facility] ding:[facility] Repository 10/20/2018/10/20/20 [id number] Emergency BBuilding:ER [address] Repository 10/20/2018/10/20/20 [id number] Ambulatory BBuilding:[address] Repository 10/20/2018 [id number] Ambulatory [address] [place] [address] Repository 10/17/2018/10/17/20 [id number] Emergency [address] ding:ED Repository 10/16/2018/10/16/20 [id number] Emergency BBuilding:ER [address] Repository 10/14/2018/10/14/20 [id number] Emergency BBuilding:ER [address] Repository 10/14/2018/10/14/20 [id number] Emergency BBuilding:ER [address] Repository 10/13/2018 [id number] Ambulatory [address] [place] [address] Repository 10/12/2018 [id number] [facility] ding:LABSPEC Repository 10/10/2018/10/10/20 [id number] Emergency BBuilding:ER [address] Repository 10/08/2018/10/08/20 [id number] Emergency BBuilding:ER [place] [address] [facility] Repository 10/07/2018/10/07/20 [id number] Ambulatory BBuilding:OL [place] [address] [facility] Repository 10/07/2018/10/07/20 [id number] Emergency BBuilding:ER [place] [address] [facility] Repository 10/05/2018/10/05/20 [id number] Emergency BBuilding:ER [place] [address] [facility] Repository 10/03/2018/10/03/20 [id number] Emergency BBuilding:ER [place] [address] [facility] Repository 09/28/2018/09/28/20 [id number] Emergency BBuilding:ER [place] [address] [facility] Repository 09/21/2018/09/21/20 [id number] Emergency BBuilding:ER [place] [address] [facility] Repository 09/16/2018/09/16/20 [id number] Emergency BBuilding:ER [place] [address] [facility] Repository 06/25/2018/06/25/20 [id number] Emergency BBuilding:ER [place] [address] [facility] Repository 02/02/2018/02/03/20 [id number] Emergency BBuilding:ER [place] [facility] Repository PAYERS PAYERS ENCOUNTER GUARANTOR PAYER SUBSCRIBER SOURCE 11/18/2018 Pending sale to [facility] HICKSONDOB: Insurance:CaresourceP [facility] olicy Number: [id number] Repository [facility] [id number] [place], [place] Date:[place] [address] Name:[facility] [address] [place] [address] [id number]: 11/01/2018 [facility] Insurance:[facility] HospitalONDOB: [facility] olicy Number: [id number] Repository [facility] [id number] [place], [place] Date:[place] [address] Name:[address] [place] [address] [id number]: 10/26/2018 RAISA T Primary RAISA Zhang Ginna [id number] Insurance:CARESOURCEP [facility]: [id number] [address]306Stp: (406) [id number] Repository [phone] (HP) Date:2018-10-26[address]ATTN: [place] [address]II: 10/26/2018 Secondary NOT GIVENUNK Ginna Insurance:SELF PAY [facility] Number: Effective Repository Date:2018-10-26 10/20/2018 RAISA T Primary [facility] HICKSONDOB: Insurance:CARESOURCE HICKSONDOB: [facility] W INSCOPolicy Number: [id number] [facility], [id number] [facility] [place] Date:2018-10-20 - [place] [address]~.BRIGID [id number] 40412Uzw: (203) ER@Sebastian: Name:[phone] [place] [address] ()Tel: [phone]) (QX) [phone]: () [phone] 10/20/2018 [facility] Insurance:CARESOURCE HICKSONDOB: [facility] W INSCOPolicy Number: [id number] Repository [facility], [id number] [facility] [place] Date:2018-10-13 - [place] [address]~.BRIGID [id number]: ([phone]) [email or web address]: Name:[phone] [place] [address] ()Tel: ([phone]) (HP) [phone]: (WP) [phone] 10/20/2018 [facility]: Insurance:CaresourceP [facility] Number: [id number] Repository [facility] [id number] [place], [place] Date:[place] [address] Name:[address] [place] [address] [id number]: 10/17/2018 [facility] Insurance:CARESOURCEP [facility]: [facility] Number: [id number] Hospital 16280Kwo: 234 [id number] Repository [phone] () Date:2018-10-17 [facility] 8730ATTN: [place] [address]UM: 10/17/2018 Secondary NOT GIVENUNK Ginna Insurance:SELF PAY [facility] Number: Effective Repository Date:2018-10-17 10/16/2018 [facility] Insurance[facility]CARESOURCE [facility]: [facility] W INSCOPolicy Number: [id number] [facility] [id number] [address] [place] Date:2018-10-16 [place] [address]~RAISAJaniceRAINEY [id number] 40051Uir: (382) [email or web address] SPRINGFIELDel: Name:[phone] [place] [address] ()Tel: (000) (HP) [phone]: (WP) [phone] 10/14/2018 [facility]: Insurance:CARESOURCE [facility]: [facility] W INSCOPolicy Number: [id number] Repository [place] [facility], [id number] [facility] [place] Date:2018-10-14 - [place] [address]~.BRIGID [id number] 300[address]Pzg: (548) ER@[email or web address]: Name:[phone] [place] [address] (HP)Tel: (000) (HP) [phone]: (WP) [phone] 10/14/2018 RAISA T Primary RAISA T [facility]: Insurance:CARESOURCE [facility]ENTERONDOB: [facility] HOSPITALCOPolicy Number: [id number] Repository [place] [facility], [id number] [facility] [place] Date:2018-10-14 [place] [address]~.BRIGID [id number] 515[address]Okv: (230) [email or web address]: Name:[phone] [place] [address] (HP)Tel: (000) (HP) [phone]: (WP) [phone] 10/13/2018 RAISA T Primary RAISA T [facility]OND[facility]: Insurance:CaresourcFresno Heart & Surgical HospitalONDOB: [facility] olicy Number: [id number] Repository [facility] [id number] [place], [place] Date:[place] [address] Name:[address] [place] [address] [id number]: 10/12/2018 RAISA T Primary RAISA T [facility] Insurance:CARESOURCEP HICKSONDOB: [place] olicy Number: [id number] [facility] [address]Uha: 234) [id number] Repository [phone] (HP) Date:2018-10-12[address]ATTN: [place] [address]JP: 10/12/2018 Secondary NOT GIVENUNK Ginna Insurance:SELF PAY [facility] Number: Effective Repository Date:2018-10-12 10/10/2018 RAISA T Primary [facility] RACHELLKSONDOB: Insurance:CARESOURCE RACHELLKSONDOB: [facility] W INSCOPolicy Number: [id number] Repository [facility], [id number] [address] [place] Date:2018-10-10 - [place] [address]~.BRIGID [id number] 384[address]Pwr: ([phone]) [email or web address]: Name:[phone] [place] [address] ()Tel: (000) (HP) [phone]: (WP) [phone] 10/08/2018 RAISA T Primary [facility] RACHELLKSONDOB: Insurance:CARESOURCE MINDAONDOB: [facility] W INSCOPolicy Number: [id number] Repository [facility], [id number] [address] [place] Date:2018-10-08 - [place] [address]~.BRIGID [id number] 92448Ddk: (399) ER@[email or web address].[facility] SPRINGFIELDjoana: Name:[phone] [place] [address] ()Tel: (000) (HP) [phone]: (WP) [phone] 10/07/[address] [facility] MINDAONDOB: Insurance:CARESOURCE MINDAONDOB: [facility] W INSCOPolicy Number: [id number] Repository [facility], [id number] [address] [place] Date:2018-10-07 - [place] [address]~.BRIGID [id number] 03[address]Lxu: (368) ER@[employer]~ALL Name:[phone] [id number]@[address] (HP)Tel: ([phone]) .CTel: [phone]) [phone]: (WP) [phone] () [phone] 10/07/[address] [facility] HICKSONDOB: Insurance:CARESOURCE MINDAONDOB: [facility] W INSCOPolicy Number: [id number] Repository [facility], [id number] [address] [place] Date:2018-10-07 - [place] [address]~RAISA.BRIGID [id number] 82671Dvo: 330) ER@[employer]~ALL Name:[phone] [email or web address]@[address] ()Tel: (652) .CTel: [phone]) [phone]: (WP) [phone] () [phone] 10/05/[address] [facility] HICKSONDOB: Insurance:CARESOURCE MINDAONDOB: [facility] W INSCOPolicy Number: [id number] Repository [facility], [id number] [address] [place] Date:2018-10-05 - [place] [address]~RAISA.BRIGID [id number] 39927Nfl: (330) ER@[employer]~ALL Name:[phone] [email or web address]@[address] ()Tel: (000) .CTel: [phone]: (WP) [phone] () [phone] 10/03/[address] [facility] HICKSONDOB: Insurance:CARESOURCE MINDAONDOB: [facility] W INSCOPolicy Number: [id number] Repository [facility], [id number] [address] [place] Date:2018-10-03 - [place] [address]~RAISA.[facility] [id number] 095[address]Sds: 330) ER@[employer]~ALL Name:[phone] [email or web address]@[address] (HP)Tel: (000) .CTel: [phone]: (WP) [phone] (HP) [phone] 09/28/2018 RAISA T [facility] HealthONDOB: Insurance:[facility]OB: [facility] INSCOPolicy Number: [id number] [facility], [id number] [address] [place] Date:2018-09-28 - [place] [address]~RAISA.RAINEY [id number] 22[address]Fzv: 330) ER@[employer]~ALL Name:[phone] [email or web address]@[address] ()Tel: (000) .CTel: [phone]: (WP) [phone] () [phone] 09/21/2018 RAISA T [facility] SystemsKSONDOB: Insurance:[facility]ONDOB: [facility] INSCOPolicy Number: [id number] [facility], [id number] [address] [place] Date:2018-09-21 - [place] [address]~RAISA.RAINEY [id number] 91702Vga: (234) ER@[employer]~ALL Name:[phone] [id number]@[address] ()Tel: (000) .CTel: [phone]: (WP) [phone] (HP) [phone] 09/16/2018 RAISA T [facility] SystemsKSONDOB: Insurance:CARESOURCE MINDAONDOB: [facility] INSCOPolicy Number: [id number] Repository [facility], [id number] [facility] Date:2018-09-16 [place] [address]~.RAINEY [id number] 64[address]Vyo: 234) ER@[employer]~ALL Name:[phone] [email or web address] [address] [place] [address] (HP)Tel: (000) .CTel: [phone]) [phone]: (WP) [phone] (HP) [phone] 06/25/2018 RAISA T Primary [facility] CenterJANENEONDOB: Insurance:MEDICAID [facility]ITALJANENESELECT SPECIALTY HOSPITAL-SAGINAWOB: [facility] [id number] Repository [facility], Number: [facility] [id number] [address]~.RAINEY Date:2017-05-23 [address]Omy: 330) ER@[employer]~ALL [id number] [phone] [email or web address] Name:[address] (HP)Tel: (000) .CTel: [phone]) 7923AK[facility], [place] [phone] (WP) [phone] (HP) [id number]: 02/02/2018 RAISA T Primary [facility] CenterJANENEONDOB: Insurance:CARESOURCE MINDAONDOB: [facility] W MEDICAIDPolicy [id number] Repository [facility], Number: [facility] [id number] [address]~.RAINEY Date:2018-02-02 [address]57[address]Gkc: (999) ER@[employer]~ALL [id number] [phone] [email or web address] Name:[address] (HP)Tel: (000) .CTel: 999) [address] [place] [address] [phone] (WP) [phone] () [phone]:
== END ==
PROVIDERS: Family Provider Preventive Medicine Occupational Medicine; PCP Preventive Medicine Occupational Medicine; Referring Provider Otolaryngology Otolaryngology/Facial Plastic Surgery; Visit Provider Otolaryngology Otolaryngology/Facial Plastic Surgery
DX: J02.9 Acute pharyngitis, unspecified (principal)
CPT/HCPCS: 87070

== ENCOUNTER 2018-12-30 06:43 | Day surgery (SDC) | payer MEDICAID, SELFPAY ==
[2018-12-30] VITALS (7 sets, daily range): BP systolic 108–131; BP diastolic 67–97; PULSE 86–115; RESP 16; TEMP 36.2–37.2; O2SAT 92–99; BMI 37.4
--- NOTE | 2018-12-30 08:45 | TONS_PTH ---
PATIENT: RAISA CHURCH LOC: [facility] [place] U#:[id number] AGE/SX: 23/F ROOM: RE12/30/[address]: Ankit Worrell MD : 1995 BED: DIS: 12/30/2018 SPEC #: [id number] RECD: 12/30/18 10:49 STATUS: SULY KATHRYN #: [id number] APOLINAR: 12/30/18 08:[address]: Ankit Worrell DEPT: SURGICAL PATHOLOGY RECD BY: Jelani Moody ENTERED: 12/30/18 12:28 SP TYPE: TONSILS OTHR DR: Dr. Junior Hoover DO Tissues: A - Tonsil, NOS B - Uvula palatina Procedures: Surgery Specimen Level III Surgery Specimen Level IV HEADER OPERATION: Tonsillectomy, incidental removal of squamous papilloma of uvula PRE-OP DIAGNOSIS: Chronic tonsillitis TISSUE SUBMITTED: A - Tonsils, tie on right, B - Squamous papilloma (lesion) of uvula MICROSCOPIC DIAGNOSIS A. Bilateral tonsils: Reactive lymphoid hyperplasia, consistent with chronic tonsillitis. B. Squamous papilloma of uvula, biopsy: Consistent with squamous papilloma. SJ:talisha 12/31/18 MICROSCOPIC DESCRIPTION Slides are reviewed. GROSS DESCRIPTION A - Received is one container labeled with the patient's name and designated tonsils - tie on right are two tonsils that in aggregate weigh 7.5 gm. The right tonsil has a tie on it and measures 8.5 x 2 x 1.1 cm. The left tonsil measures 3.1 x 2 x 1 cm. Both tonsils are similar in appearance. The external surfaces are pink-foster, smooth, glistening and somewhat lobulated. Focally they are hemorrhagic, granular and bear cautery artifact. Serial cross sections through the tonsils reveal normal tonsillar architecture. Sections are submitted in two cassettes as follows: 1 - right tonsil, 2 - left tonsil. B - Received in fixative is one container labeled with the patient's name and designated squamous papilloma of uvula. The specimen consists of a single irregular fragment of light foster soft tissue measuring 0.5 x 0.2 x 0.2 cm. The specimen is totally submitted in one cassette. / AM:talisha 12/30/18 TC:1 CPT: 60795 x2, 22449
[2018-12-30] MEDS: Bacitracin 500 UNITS/GM PACKET (09:00)
--- NOTE | 2018-12-30 09:17 | DCINST_ITS ---
Discharge Diet: Soft diet - for 2 weeks, be sure to drink extra liquids. Discharge Activity: Return to Normal Activity - Rest for 10 days Additional Activity Instructions:: Use tylenol (with or without the hydrocodone as prescribed) every 4 hours for the first 7-10 days then as needed. Allergies/Adverse Reactions: Allergies No Known Allergies Allergy (Verified 12/30/18 06:58) Medications to take at Discharge Omeprazole 20 mg PO DAILY 10/17/18 Ibuprofen [Advil] 200 mg PO PRN PRN 12/23/18 Primary Care Physician: Junior Hoover DO [Primary Care Provider] - Test Results: Test results from this visit will be discussed in further detail at your follow- up appointment, if applicable. Please Follow Up With: Ankit Worrell MD - [phone] When: in 1-2 weeks.
--- NOTE | 2018-12-30 10:07 | OP_ITS ---
RAISA CHURCH Female : 1995 [facility]# [id number] 12/30/18 10:07 - Operative Note by Ankit Worrell [facility] Num: [id number] : 1995 Patient Age: 23 Preoperative diagnosis: Chronic tonsillitis Postoperative diagnosis: Same also pathology pending regarding uvular mass lesion Procedure: Tonsillectomy, incidental excisional biopsy of uvular mass lesion consistent with a papilloma Anesthesia: General endotracheal per Cecille Polanco CRNA Details of procedure: The patient was transported to the operating room and placed on the OR table in the supine position. After the administration of adequate general endotracheal anesthesia the patient was appropriately positioned, eyes were treated and taped closed. A head drape was applied. The Rafael-Kelli mouthgag was introduced into the oral cavity extended and suspended from a Rabago stand. Inspection and palpation were negative for any signs of submucosal clefting of the palate. The nasopharynx was clear, no adenoidal tissue of any significance. Incidental finding was that of a small mass lesion dangling from the end of the uvula consistent with a squamous papilloma. This was excised and the base area was cauterized. The specimen was sent to the pathologist for permanent analysis. Attention was then directed to performing tonsillectomy. The tonsils were moderately hyperplastic but were not acutely inflamed. The right tonsil was grasped with a tenaculum. With #12 sickle blade a mucosal incision was created along the right anterior tonsillar pillar. With Leida dissector, curved Metzenbaum scissors, in both blunt and sharp fashion, the tonsil was excised. The bayonet Bovie was utilized for hemostasis throughout the dissection as well as for electrodissection. The left tonsil was then removed in similar fashion. The oral cavity was irrigated with saline suctioned dry and hemostasis was obtained with electrocautery. When it was evident that no further bleeding was present, the Rafael-Kelli mouthgag was relaxed, withdrawn, and the procedure terminated. The patient tolerated the procedure well, did not sustain any intraoperative anesthetic or surgical complication, was extubated in the operating room and taken to the PACU where she was noted to be in satisfactory condition. Ankit Worrell MD Initialized on 12/30/18 10:07 - END OF NOTE
[2018-12-30] MEDS: HYDROCODONE/APAP 7.5-325/15ML 15 ML UDC 10 ML PO (10:40)
[2018-12-30] MEDS: Lactated Ringers 1,000 ML 100 ML IV (11:15)
== END 2018-12-30 15:13 | disposition home or self-care (01) ==
LOC: SDC 06:43 → AC 06:45
PROVIDERS: Family Provider Preventive Medicine Occupational Medicine; PCP Preventive Medicine Occupational Medicine; Referring Provider Otolaryngology Otolaryngology/Facial Plastic Surgery; Visit Provider Otolaryngology Otolaryngology/Facial Plastic Surgery
PROC: (CPT 42100; principal; 2018-12-30 08:30)
DX: J35.01 Chronic tonsillitis (principal); K13.79 Other lesions of oral mucosa; F17.200 Nicotine dependence, unspecified, uncomplicated; Z79.899 Other long term (current) drug therapy
CPT/HCPCS: 42100; 42826; 88304; 88305; J7120; J2405

== ENCOUNTER 2019-07-17 12:08 | Emergency (ER) | payer MEDICAID, SELFPAY ==
[2018-12-30 07:00] VITALS: BMI 37.4
[2019-07-17 12:09] VITALS: BP 154/93; PULSE 91; RESP 16; TEMP 36.3; O2SAT 95; BMI 39.1
--- NOTE | 2019-07-17 12:34 | EKG12_ITS ---
Test Reason : CP Blood Pressure : / mmHG Vent. Rate : 086 BPM Atrial Rate : 086 BPM P-R Int : 146 ms QRS Dur : 074 ms QT Int : 372 ms P-R-T Axes : 028 -09 021 degrees QTc Int : 445 ms Normal sinus rhythm with sinus arrhythmia Moderate voltage criteria for LVH, may be normal variant Borderline ECG Confirmed by SMOOTH JARA, JARRED ([id number]), writer editor TAMIA SPENCE ([id number]) on 07/19/2019 9:29:50 AM Referred By: CANDIDA Confirmed By:JARRED REBOLLAR MD
[2019-07-17] MEDS: Ketorolac 30 MG/ML Syringe IV (12:48)
[2019-07-17 12:49] LABS: Absolute Neutrophil Count 6.2 X10^3/uL (2.0-7.7); Basophil# 0.03 X10^3/uL; Basophil% 0.3 % (0-1); Eosinophil# 0.25 X10^3/uL; Eosinophils% 2.4 % (0-5); Hematocrit 46.3 % (37-47); Hemoglobin 14.9 g/dL (12.0-15.0); Mean Corp Hgb Conc 32.2 g/dL (32-36); Mean Corpuscular Hgb 28.9 pg (27.0-32.0); Mean Corpuscular Volume 89.7 fL (81-99); Mean Platelet Vol. 10.3 fl (6.2-12.0); Monocyte# 0.55 X10^3/uL; Monocyte% 5.3 % (0-10); NRBC Flagged by Analyzer 0 % (0-5); Neutrophil # 6.16 X10^3/uL (2.7-7.7); Neutrophil % 59.7 % (47-70); Platelet Count 298 K/mm3 (150-450); RBC Distribution Width CV 13.3 % (11.6-14.6); RBC Distribution Width SD 43.8 fl (35.1-43.9); Red Blood Count 5.16 M/mm3 (4.2-5.4); White Blood Count 10.3 K/mm3 (4.4-11.0)
[2019-07-17 12:51] LABS: Erythrocyte Sedimentation Rate 9 mm/hr (0-20)
--- NOTE | 2019-07-17 12:51 | RAD_ITS ---
STUDY: X-RAY CHEST REASON FOR EXAM: Female, 24 years old. Chest pain. TECHNIQUE: PA and lateral views of the chest. COMPARISON: 10/17/2018. FINDINGS: There is mild elevation of the right hemidiaphragm. The lungs are clear and expanded. There is no demonstrated pleural abnormality. Normal size heart. Normal mediastinum and benedict. Normal visualized pulmonary arteries. Normal visualized aortic arch and descending thoracic aorta. Is mild levoscoliosis of the thoracic spine. Normal visualized ribs, clavicles, and shoulders. There is no demonstrated abnormality of the visualized soft tissue structures of the upper abdomen. RAD/Chest PA and Lateral IMPRESSION: No active pulmonary disease. Electronically Signed: Dima Warner MD at 13:14 EDT Tel , Service support ,
[2019-07-17 12:56] LABS: D-Dimer Quantitative (DVT/PE) < 0.27 FEU/ug/m (0.27-0.49)
--- NOTE | 2019-07-17 13:16 | ED.DCSUM_ITS ---
- ER Visit Summary Date of Service: 07/17/19 Chief Complaint: [Chest pain] History of Present Illness: The patient is a 24 F [presents the emergency department chest pain that started about a week ago. Patient has had intermittent pain lasting up to a few hours at a time. She describes it as sharp and worse with deep breath and certain movements. It is most severe she rates it about a 6 or 7 out of 10 and currently about a 5 out of 10. She denies any shortness of breath. Patient states that the pain is worse with breathing. She denies any injury to her chest other than at times she will wrestle with her son but does not recall exact time of injury. Patient used ibuprofen at home but no relief. Patient has not had any recent travel or surgery. Patient is not on hormone replacement.] Physical Examination: [HEENT-PERRLA, EOMI. Cranial nerves II through XII grossly intact. TMs clear. Mucous membranes moist. No adenopathy. Cardiovascular-regular rate and rhythm without murmur or ectopy Lungs-clear to auscultation, chest wall stable without crepitus or subcu em physema. Chest wall-patient does have some tenderness palpation over the right anterior chest wall over the sternal chondral junction that seems to reproduce her pain. Abdomen-normoactive bowel sounds, soft, nontender, no rebound or rigidity, no peritoneal signs. Extremities-intact ?4, normal range of motion, normal pulses, atraumatic. No edema of the lower extremities and negative Homans sign bilaterally.] Test Results: [EKG obtained arrival shows sinus rhythm with a ventricular rate of 86 bpm with occasional PACs. CBC with differential was normal. Sed rate was 9. D-dimer is less than 0.27. Chest x-ray showed nothing acute.] Emergency Department Course and Treatment: [She was medicated with Toradol 30 mg IV.] Treatment Plan: [Patient will be given a prescription for naproxen and advised to follow-up with her primary care physician within next 5 to 7 days. Patient advised to return if increasing pain, shortness of breath, fever, or conditions worsen anyway.] Disposition: [Discharged home in stable condition.] Impression: [Chest wall pain] This note was generated with [employer] dictation software. It may contain incorrect words, spelling, and punctuation that were not noted in review of the chart prior to signing ED Disposition - Plan for ED Patient: Referrals: Junior Hoover DO [Primary Care Provider] -
--- NOTE | 2019-07-17 13:18 | ED.DEP ---
ED Disposition - Plan for ED Patient: Instructions: CHEST WALL PAIN, Costochondritis Prescriptions: Naproxen [Naprosyn] 500 mg PO BID PRN #20 tab Prescription Printed Referrals: Junior Hoover DO [Primary Care Provider] - 5-7 Days
[2019-07-17 13:25] VITALS: BP 124/79; PULSE 62; RESP 15; O2SAT 99
== END 2019-07-17 13:26 | disposition home or self-care (01) ==
LOC: ED 13:01
PROVIDERS: Emergency Provider Emergency Medicine; Family Provider Preventive Medicine Occupational Medicine; PCP Preventive Medicine Occupational Medicine
DX: R07.89 Other chest pain (principal); K21.9 Gastro-esophageal reflux disease without esophagitis; Z72.0 Tobacco use; Z79.899 Other long term (current) drug therapy
CPT/HCPCS: 71046; 85025; 85379; 85652; 93005; 96374; 99285; A4216

== ENCOUNTER → 2019-09-06 | Outpatient (CLI) | payer MEDICAID, SELFPAY | END | disposition home or self-care (01) | LOC: LABSPEC 15:10 | PROVIDERS: Family Provider Preventive Medicine Occupational Medicine; PCP Preventive Medicine Occupational Medicine; Referring Provider Otolaryngology Otolaryngology/Facial Plastic Surgery; Visit Provider Otolaryngology Otolaryngology/Facial Plastic Surgery | DX: J02.9 Acute pharyngitis, unspecified (principal) | CPT/HCPCS: 87070 ==

== ENCOUNTER → 2019-09-13 | Outpatient (CLI) | payer MEDICAID, SELFPAY | END | disposition home or self-care (01) | LOC: LABSPEC 15:16 | PROVIDERS: Family Provider Preventive Medicine Occupational Medicine; PCP Preventive Medicine Occupational Medicine; Referring Provider Otolaryngology Otolaryngology/Facial Plastic Surgery; Visit Provider Otolaryngology Otolaryngology/Facial Plastic Surgery | DX: J02.9 Acute pharyngitis, unspecified (principal) | CPT/HCPCS: 87070 ==

== ENCOUNTER → 2020-04-20 13:43 | Outpatient (CLI) | payer MEDICAID, SELFPAY ==
--- NOTE | 2020-04-20 13:52 | CT_ITS ---
STUDY: CT SOFT TISSUE NECK WITH CONTRAST REASON FOR EXAM: Female, 24 years old. LEFT NECK/THROAT PAIN. L NECK/THROAT PAIN, EVALUATE FOR KOTLIK SYNDROME VS GLOSSOPHARYNGEAL NEURALGIA. RADIATION DOSAGE (If Supplied By Facility): CTDIvol = ( 13.88 ) mGy, DLP = ( 616.41 ) mGycm TECHNIQUE: The patient was scanned in a multi-detector CT scanner. High resolution transaxial imaging was performed following intravenous administration of IV 75mL Isovue-370. Sagittal and coronal images were reconstructed. Individualized dose optimization techniques were used for this CT. COMPARISON: None. FINDINGS: Normal bilateral parotid glands. Normal bilateral gas leak inspector spaces. Normal bilateral parapharyngeal spaces. Normal bilateral carotid spaces. Normal bilateral sublingual and submandibular glands and spaces. Normal visualized nasopharynx. Normal retropharyngeal space. Normal perivertebral space. Normal visualized bilateral faucial tonsils. The visualized tongue, tongue base and oropharynx are normal. The visualized cervical lymph nodes (levels I-) are within normal size limits, and maintain normal morphology. There is no demonstrated solid or cystic mass lesion. There is no abnormal contrast enhancement. Normal epiglottis, bilateral vallecula and hypopharynx. The pre-epiglottic and paraglottic adipose spaces are normal. Normal visualized bilateral piriform sinuses, aryepiglottic folds, vocal cords, and arytenoid-cricoid articulations. Normal subglottic trachea. Normal bilateral lobes of the thyroid gland. Normal visualized pulmonary apices. There is opacification of the right maxillary sinus as well as partial opacification of the left maxillary sinus. Normal visualized cervical spine. CT/Soft Tissue Neck WITH Contrast IMPRESSION: Opacification of the right maxillary sinus with partial opacification of the left maxillary sinus. Electronically Signed: Alexander Gunn, at 15:07 EDT , Service support ,
== END ==
PROVIDERS: PCP Preventive Medicine Occupational Medicine; Referring Provider Otolaryngology; Visit Provider Otolaryngology
DX: M54.2 Cervicalgia (principal); R07.0 Pain in throat
CPT/HCPCS: 70491; Q9967

== ENCOUNTER → 2021-07-31 12:43 | Outpatient (CLI) | payer MEDICAID, SELFPAY ==
[2021-06-05 06:00] VITALS: BMI 42.0
--- NOTE | 2021-07-31 12:47 | CT_ITS ---
STUDY: CT CHEST WITHOUT CONTRAST REASON FOR EXAM: Female, 26 years old. Lung nodule with dyspnea RADIATION DOSAGE (If Supplied By Facility): CTDIvol = ( 20.14 ) mGy, DLP = ( 739.68 ) mGycm TECHNIQUE: Transaxial imaging was performed without the administration of intravenous contrast material. Multiplanar coronal and sagittal images were reformatted. Individualized dose optimization techniques were used for this CT. COMPARISON: None. FINDINGS: Small benign-appearing bilateral axillary lymph nodes. There is a 5 mm noncalcified nodule in the posterior medial aspect of the right lower lobe as seen on axial image #59. There is a 2.1 cm bulla in the posterior medial segment of the right lower lobe as seen on axial image #73. There is no demonstrated pleural abnormality. Normal heart and pericardium. Normal mediastinum. Normal hilar regions. Normal unenhanced pulmonary arteries. Normal aorta arch and descending thoracic aorta. Normal osseous structures. Fatty infiltration of the liver. CT/Chest without Contrast IMPRESSION: 5 mm noncalcified nodule in the posterior segment of the right lower lobe as seen on axial image #59. A 12 month follow-up is recommended. Fatty infiltration of the liver. Electronically Signed: Alexander Gunn MD at 14:03 EDT , Service support ,
== END ==
PROVIDERS: PCP Preventive Medicine Occupational Medicine; Visit Provider Internal Medicine Critical Care Medicine
DX: R91.1 Solitary pulmonary nodule (principal)
CPT/HCPCS: 71250

== ENCOUNTER → 2021-08-08 09:44 | Outpatient (CLI) | payer MEDICAID, SELFPAY ==
[2021-06-05 06:00] VITALS: BMI 42.0
--- NOTE | 2021-08-08 15:30 | PFTCOMP ---
COMPLETE PULMONARY FUNCTION TEST INTERPRETATION Brief HPI: Patient is a 26 year old female, currently under the care of myself, who presents to [facility] for complete pulmonary function tests secondary to diagnosis of dyspnea. Respiratory therapist reports good effort and reproducible results. Interpretation: Forced expiration spirometry shows no large airways obstructive ventilatory defect with an FEV1 of 82% predicted. There is no significant bronchodilator response by strict ATS criteria. Spirograms are of good quality and plateau normally. The respiratory flow volume loop shows a normal pattern. Lung volumes by body plethysmography show a normal total lung capacity at 4.64 L, 87% predicted. All other lung volumes are within normal limits. Diffusion capacity by carbon monoxide is at the lower limit of normal at 75% predicted. The airway resistance is normal. No previous pulmonary function tests were available for review. Impression: These pulmonary function tests are grossly within normal limits.
== END ==
PROVIDERS: PCP Preventive Medicine Occupational Medicine; Referring Provider Internal Medicine Critical Care Medicine; Visit Provider Internal Medicine Critical Care Medicine
DX: R06.00 Dyspnea, unspecified (principal)
CPT/HCPCS: 94060; 94726; 94729

== ENCOUNTER → 2025-02-10 | Outpatient (CLI) | payer MEDICAID, SELFPAY ==
--- NOTE | 2025-02-10 09:16 | RAD_ITS ---
EXAM: Esophagram barium swallow. CLINICAL HISTORY: Pharyngo esophageal dysphagia. COMPARISON: None TECHNIQUE: The patient ingested barium. Multiple images of the esophagus were obtained. Fluoroscopy: 31 seconds. 17.8 mGy FINDINGS: The esophagus is unremarkable. No evidence of mass lesion. No evidence of gastroesophageal reflux. No evidence of obstruction. The patient ingested a 12 mm tablet the barium without any difficulty. RAD/Esophagus Dual Contrast IMPRESSION: Unremarkable dual contrast esophagram barium swallow. Reading Location: [facility]
== END | disposition home or self-care (01) ==
LOC: RAD 09:10
PROVIDERS: PCP Preventive Medicine Occupational Medicine; Referring Provider Otolaryngology; Visit Provider Otolaryngology
DX: R13.10 Dysphagia, unspecified (principal)
CPT/HCPCS: 74221

== ENCOUNTER → 2025-05-03 | Outpatient (CLI) | payer OTHER, SELFPAY ==
[2025-05-03 12:06] LABS: Erythrocyte Sedimentation Rate 13 mm/hr (0-30)
[2025-05-03 12:09] LABS: Absolute Lymphocyte Count 2.55 X10^3/uL (0.83-4.51); Basophil# 0.03 X10^3/uL; Basophil% 0.4 % (0-1); Eosinophil# 0.16 X10^3/uL; Eosinophils% 1.9 % (0-5); Hematocrit 41.9 % (37-47); Hemoglobin 13.8 g/dL (12.0-15.0); Lymphocyte # 2.55 X10^3/ul (0.83-4.51); Lymphocyte % 30.7 % (19-41); Mean Corp Hgb Conc 32.9 g/dL (32-36); Mean Corpuscular Hgb 28.2 pg (27.0-32.0); Mean Corpuscular Volume 85.7 fL (81-99); Mean Platelet Vol. 10.2 fl (6.2-12.0); Monocyte# 0.51 X10^3/uL; Monocyte% 6.1 % (0-10); NRBC Flagged by Analyzer 0 % (0-5); Neutrophil # 5.02 X10^3/uL (2.7-7.7); Neutrophil % 60.5 % (47-70); Platelet Count 333 K/mm3 (150-450); RBC Distribution Width CV 12.9 % (11.6-14.6); Red Blood Count 4.89 M/mm3 (4.2-5.4); White Blood Count 8.3 K/mm3 (4.4-11.0)
[2025-05-03 13:18] LABS: ALB/GLOB Ratio 1.6 RATIO (0.9-2.4); AST(SGOT) 20 U/L (<=31); Alanine Aminotransfer ALT/SGPT 30 U/L (<=34); Albumin, Serum 4.5 g/dL (3.5-5.0); Alkaline Phosphatase 93 U/L (35-104); Anion Gap 13 (5-15); BUN 9 mg/dL (4-19); BUN/Creat Ratio 14.8 RATIO (10-20); Calcium,Total 9.9 mg/dL (7.6-11.0); Carbon Dioxide 22.9 mmol/L (21.0-32.0); Chloride 104 mmol/L (98-108); Creatinine, Serum 0.61 mg/dL (0.70-1.20); EST Glomerular Filtration Rate 124 (>60); Globulin 2.9 g/dL (2.2-4.2); Glucose 84 mg/dL (70-99); Protein, Total 7.4 g/dL (5.9-8.4); Sodium Level 140 mmol/L (133-145); Total Bilirubin 0.32 mg/dL (0.00-1.30)
[2025-05-03 13:27] LABS: Cholesterol 271 mg/dL (<=200); High Density Lipoprotein 43 mg/dL; Low Density Lipoprotein Calc. 184 mg/dL; Triglycerides 224 mg/dL; Very Low Density Lipoprotein 45 mg/dL (5-40); cholesterol:hdl ratio screen 6.36
[2025-05-03 13:47] LABS: Vitamin B12 581 pg/mL (180-914); Vitamin D,25 Hydroxy 15.8 ng/mL (30-100)
[2025-05-03 13:52] LABS: CRP < 3.00 mg/L (0.0-3.0); Ferritin 112 ng/mL (22-378)
[2025-05-03 18:38] LABS: LDH 214 U/L (84-246)
== END | disposition home or self-care (01) ==
LOC: LAB 11:16
PROVIDERS: Referring Provider Internal Medicine Gastroenterology; Visit Provider Internal Medicine Gastroenterology
DX: Z00.00 Encounter for general adult medical examination without abnormal findings (principal); K21.9 Gastro-esophageal reflux disease without esophagitis; Z79.899 Other long term (current) drug therapy
CPT/HCPCS: 36415; 80053; 80061; 82306; 82607; 82728; 82746; 82784; 82785; 82941; 83516; 83615; 84165; 84439; 84443; 84550; 85025; 85652; 86003; 86036; 86037; 86140; 86255; 86334; 86480; 86671

== ENCOUNTER → 2025-05-04 | Outpatient (CLI) | payer OTHER, SELFPAY ==
[2025-05-08 22:06] LABS: Pancreatic Elastase, Fecal > 800 (>200)
[2025-05-10 08:08] LABS: Calprotectin, Stool 90 ug/g (0-120); Fats, Neutral Normal (.); Fats, Total Normal (.)
== END | disposition home or self-care (01) ==
LOC: LABSPEC 15:44
PROVIDERS: Referring Provider Internal Medicine Gastroenterology; Visit Provider Internal Medicine Gastroenterology
DX: K58.9 Irritable bowel syndrome, unspecified (principal); R19.7 Diarrhea, unspecified
CPT/HCPCS: 82274; 82653; 82705; 83630; 83993; 87177; 87209; 87329; 87493; 87506

== ENCOUNTER → 2025-05-15 | Outpatient (CLI) | payer OTHER, SELFPAY | END | disposition home or self-care (01) | LOC: US 08:55 | PROVIDERS: Referring Provider Internal Medicine Gastroenterology; Visit Provider Internal Medicine Gastroenterology | DX: R19.7 Diarrhea, unspecified (principal) | CPT/HCPCS: 76705; 76981 ==

== ENCOUNTER 2025-05-19 12:59 | Day surgery (SDC) | payer OTHER, SELFPAY ==
--- NOTE | 2025-05-18 15:37 | PAT.ANESEVAL ---
Pre-Assessment Diagnosis/Proposed Procedure Planned Operative Procedure(s): COLONOSCOPY, EGD WITH STEVENSON Anesthesia History Anesthesia History - student services rep: Anesthesia History - student services rep Hx Hospitalization No 05/18/25 12:01 Any Problems With Anesthesia No 05/18/25 12:01 Cholinesterase deficiency No 05/18/25 12:01 You/Your Family Experience No 05/18/25 12:01 fever (hyperthermia) with Relationship Recent Exposure to Contagious No 12/23/18 08:44 Disease Does patient have nerve No 05/18/25 12:01 stimulator Patient instructed to have device shut off --Does patient have Pacemaker or ICD? When Was Last Pacemaker Check QUESTION #4 FULL TEXT: You/Your Family Experience fever (hyperthermia) with Anesthesia Last Oral Intake Last Oral intake: Last Oral Intake NPO since Meds taken in AM with sips of water? Meds patient instructed to take am of surgery PONV PONV - student services rep: PONV - student services rep Female Yes 05/18/25 12:01 HX of Motion Sickness No 05/18/25 12:01 HX of N/V After Surgery No 05/18/25 12:01 Non-Smoker Yes 05/18/25 12:01 Duration of Surgery greater No 05/18/25 12:01 than 60 minutes Number of Risk Factors 2 05/18/25 12:01 PONV Score Moderate Risk 05/18/25 12:01 Height & Weight Height & Weight: Anesthesia: Height & Weight Height 5 ft 5 in 08/15/21 09:51 Respiratory Assessment Respiratory Assessment - student services rep: Respiratory Tract Infection Hx - student services rep Hx Respiratory Tract Infection No 05/18/25 12:01 STOP Sleep Apnea STOP Sleep Apnea - student services rep: STOP Sleep Apnea - student services rep Hx Hypertension No 05/18/25 12:01 Hx Sleep Apnea No 05/18/25 12:01 CPAP BIPAP Do you snore loudly (louder No 05/18/25 12:01 than talking or can be heard Do you often feel tired/ No 05/18/25 12:01 fatigued/ sleepy during daytime? Has anyone observed you stop No 05/18/25 12:01 breathing during sleep? STOP Results Negative 05/18/25 12:01 QUESTION #5 FULL TEXT : Do you snore loudly (louder than talking or can be heard through closed doors)? 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 Specify any problems Hx of Preganancy in last 3 No 05/18/25 12:01 Months Nurse Filling Out Transfusion [email or web address] 05/18/25 12:01 & Questions: Date: 05/18/25 05/18/25 12:01 Time: 12:03 05/18/25 12:01 Patient unable to answer at this time (ie. confused, unrespo /Reproduction History /Reproductive History - student services rep: /Reproductive Hx- student services rep Hx Now No 05/18/25 12:01 Gestational Age (in weeks): EDC: Hx Hx Para Hx Section SAB No 05/18/25 12:01 PFSH Medical History (Updated 05/18/25 @ 12:08 by Karan Chaudhry) Back pain Migraine headache Umbilical hernia Scoliosis GERD (gastroesophageal reflux disease) Fatty liver Pulmonary nodule Tobacco abuse Home Medications ?Medication ?Instructions ?Recorded ?Last Taken ?Type acetaminophen 325 mg capsule 325 mg PO Q4-6H PRN pain 05/03/25 Unknown History famotidine 20 mg tablet 20 mg PO QDAY 05/03/25 Unknown History ibuprofen 600 mg tablet 600 mg PO Q8H PRN pain 05/03/25 Unknown History multivitamin 1 tab PO QDAY 05/03/25 Unknown History pantoprazole 40 mg tablet,delayed 40 mg PO QDAY 05/03/25 Unknown History release Lactobacillus acidophilus 10 100 mmu cells PO DAILY 05/18/25 Unknown History billion cell capsule (Probacap) Allergy/AdvReac Type Severity Reaction Status Date / Time tramadol AdvReac Unknown dizziness Verified 05/18/25 11:59 Family History (Updated 05/03/25 @ 11:20 by Thea Deutsch) Father Diabetes Grandmother Leukemia Grandfather Diabetes Mother Lymphoma Leukemia [place] cell cancer CVA (cerebral vascular accident) Aunt Breast cancer Cancer lung cancer Uncle Leukemia Uncle Lung cancer Uncle Throat cancer Tongue cancer Uncle Prostate cancer Stomach cancer Surgical History H/O colonoscopy S/P cholecystectomy H/O tubal ligation History of tonsillectomy Social History (Updated 05/03/25 @ 09:25 by Thea Deutsch) household members: spouse housing: house current occupational status: unemployed Smoking Status: Former smoker alcohol intake: never substance use type: does not use Audit: Pertinent Findings Pertinent Findings EKG Perinent findings: 07/17/2019. Normal sinus rhythm with sinus arrhythmia. Moderate voltage criteria for LVH. Recommendation Anesthesia Recommendation Anesthesia recommendation: OPTIMIZED for anesthesia
[2025-05-19] VITALS (9 sets, daily range): BP systolic 97–121; BP diastolic 58–72; PULSE 64–93; RESP 16; TEMP 36.3–36.8; O2SAT 96–99; BMI 43.4
--- NOTE | 2025-05-19 13:26 | PRE.ANES_ITS ---
ASA Classification* ASA Classification ASA Classification: 2 Assessment & Plan Anesthesia* Anesthesia Assessment Anesthesia Assessment: Discussed sedation and/or anesthesia options, risks, benefits, and alternatives with patient/parents/legal guardian/POA. Questions invited. The patient/parents/legal guardian/POA seems to understand and agrees to proceed with anesthesia plan. Reviewed the physical assessment, medical history, allergy history and patient home medications list prior to surgery/procedure/anesthetic and documented any changes. Performed airway and anesthesia risk assessments. Anesthesia Type Anesthesia Type: MAC Anesthesia Focused Assessment* Airway Assessment Mouth opens: >3 cm Mallampati Score: II Labs Anesthesia Preop lab: CBC WBC 8.3 K/mm3 (4.4-11.0) 05/03/25 11:05/03/25 RBC 4.89 M/mm3 (4.2-5.4) 05/03/25 11:05/03/25 Hgb 13.8 g/dL (12.0-15.0) 05/03/25 11:05/03/25 Hct 41.9 % (37-47) 05/03/25 11:05/03/25 Plt Count 333 K/mm3 (150-450) 05/03/25 11:05/03/25 CHEMISTRY Potassium 4.0 mmol/L (3.3-5.1) 05/03/25 11:25 05/03/25 Sodium 140 mmol/L (133-145) 05/03/25 11:25 05/03/25 BUN 9 mg/dL (4-19) 05/03/25 11:05/03/25 Creatinine 0.61 mg/dL (0.70-1.20) L 05/03/25 11:25 Glucose 84 mg/dL (70-99) 05/03/25 11:05/03/25 TSH 2.150 uIU/mL (0.300-4.200) 05/03/25 11:04/10 COAG PT 13.4 SECONDS (11.7-14.9) 10/17/18 16:12 Pre-Assessment Diagnosis/Proposed Procedure Planned Operative Procedure(s): COLONOSCOPY, EGD WITH STEVENSON Anesthesia History Anesthesia History - neurology manager: Anesthesia History - neurology manager Hx Hospitalization No 05/18/25 12:01 Any Problems With Anesthesia No 05/18/25 12:01 Cholinesterase deficiency No 05/18/25 12:01 You/Your Family Experience No 05/18/25 12:01 fever (hyperthermia) with Relationship Recent Exposure to Contagious No 12/23/18 08:44 Disease Does patient have nerve No 05/18/25 12:01 stimulator Patient instructed to have device shut off --Does patient have Pacemaker or ICD? When Was Last Pacemaker Check QUESTION #4 FULL TEXT: You/Your Family Experience fever (hyperthermia) with Anesthesia Last Oral Intake Last Oral intake: Last Oral Intake NPO since Meds taken in AM with sips of water? Meds patient instructed to take am of surgery PONV PONV - neurology manager: PONV - neurology manager Female Yes 05/18/25 12:01 HX of Motion Sickness No 05/18/25 12:01 HX of N/V After Surgery No 05/18/25 12:01 Non-Smoker Yes 05/18/25 12:01 Duration of Surgery greater No 05/18/25 12:01 than 60 minutes Number of Risk Factors 2 05/18/25 12:01 PONV Score Moderate Risk 05/18/25 12:01 Height & Weight Height & Weight: Anesthesia: Height & Weight Height 5 ft 5 in 08/15/21 09:51 Respiratory Assessment Respiratory Assessment - neurology manager: Respiratory Tract Infection Hx - neurology manager Hx Respiratory Tract Infection No 05/18/25 12:01 STOP Sleep Apnea STOP Sleep Apnea - neurology manager: STOP Sleep Apnea - neurology manager Hx Hypertension No 05/18/25 12:01 Hx Sleep Apnea No 05/18/25 12:01 CPAP BIPAP Do you snore loudly (louder No 05/18/25 12:01 than talking or can be heard Do you often feel tired/ No 05/18/25 12:01 fatigued/ sleepy during daytime? Has anyone observed you stop No 05/18/25 12:01 breathing during sleep? STOP Results Negative 05/18/25 12:01 QUESTION #5 FULL TEXT : Do you snore loudly (louder than talking or can be heard through closed doors)? 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 Specify any problems Hx of Preganancy in last 3 No 05/18/25 12:01 Months Nurse Filling Out Transfusion [email or web address] 05/18/25 12:01 & Questions: Date: 05/18/25 05/18/25 12:01 Time: 12:03 05/18/25 12:01 Patient unable to answer at this time (ie. confused, unrespo /Reproduction History /Reproductive History - neurology manager: /Reproductive Hx- neurology manager Hx Now No 05/18/25 12:01 Gestational Age (in weeks): EDC: Hx Hx Para Hx Section SAB No 05/18/25 12:01 Active Medications Active Medications: Current Medications Generic Name Dose Route Start Last Admin Trade Name Freq PRN Reason Stop Dose Admin Sodium Chloride 1,000 mls @ 15 mls/hr 05/19/25 13:15 IV .Q48H HERO PFSH Medical History Back pain Migraine headache Umbilical hernia Scoliosis GERD (gastroesophageal reflux disease) Fatty liver Pulmonary nodule Tobacco abuse Home Medications ?Medication ?Instructions ?Recorded ?Last Taken ?Type acetaminophen 325 mg capsule 325 mg PO Q4-6H PRN pain 05/03/25 Unknown History famotidine 20 mg tablet 20 mg PO QDAY 05/03/25 Unkno wn History ibuprofen 600 mg tablet 600 mg PO Q8H PRN pain 05/03 Unknown History multivitamin 1 tab PO QDAY 05/03/25 Unkno wn History pantoprazole 40 mg tablet,delayed 40 mg PO QDAY Unknown History release Lactobacillus acidophilus 10 100 mmu cells PO DAILY Unknown History billion cell capsule (Probacap) Allergy/AdvReac Type Severity Reaction Status Date / Time tramadol AdvReac Unknown dizziness Verified 05/19/25 13:19 Family History Father Diabetes Grandmother Leukemia Grandfather Diabetes Mother Lymphoma Leukemia [place] cell cancer CVA (cerebral vascular accident) Aunt Breast cancer Cancer lung cancer Uncle Leukemia Uncle Lung cancer Uncle Throat cancer Tongue cancer Uncle Prostate cancer Stomach cancer Surgical History H/O colonoscopy S/P cholecystectomy H/O tubal ligation History of tonsillectomy Social History household members: spouse housing: house current occupational status: unemployed Smoking Status: Former smoker alcohol intake: never substance use type: does not use Review of Systems (Anesthesia) ROS Narrative System reviewed and no additional complaints, except as documented.
[2025-05-19] MEDS: Lactated Ringers 1,000 ML 15 ML IV (13:31)
--- NOTE | 2025-05-19 14:00 | COLBX_PTH ---
PATIENT: RAISA CHURCH LOC: EN U#:[id number] AGE/SX: 29/F ROOM: RE05/19/[address]: Dr. Addison Ac DO : 1995 BED: DIS: 05/19/2025 SPEC #: [id number] RECD: 05/22/25 07:33 STATUS: SULY REAngel #: [id number] APOLINAR: 05/19/25 14:[address]: Addison Ac DEPT: SURGICAL PATHOLOGY RECD BY: Miguel Palomares ENTERED: 05/22/25 11:14 SP TYPE: COLON BX OTHR DR: Liz Primary Care Phys Tissues: A - Ileum, NOS B - COLON BIOPSY C - Sigmoid colon biopsy Procedures: Surgery Specimen Level IV HEADER OPERATION: Colonoscopy, polypectomy, biopsy, clip PRE-OP DIAGNOSIS: Gastroesophageal reflux disease, fatty liver, diarrhea, dysphagia TISSUE SUBMITTED: A- Terminal ileum biopsy, B- Random colon biopsy, C- Sigmoid colon polyp MICROSCOPIC DIAGNOSIS A. Large intestine, terminal ileum, biopsies: - Benign small intestinal mucosa with follicular lymphoid hyperplasia B. Large intestine, random: - Benign colonic mucosa without active inflammation C. Large intestine, sigmoid polyp: * Tubular adenoma MICROSCOPIC DESCRIPTION Slides are reviewed. GROSS DESCRIPTION A. Received in fixative is one container labeled with the patient's name and designated Terminal ileum biopsy. The specimen consists of three irregular fragments of light foster soft tissue that in aggregate measure 0.3 and 0.4 cm. The specimen is totally submitted in one cassette. B. Received in fixative is one container labeled with the patient's name and designated Random colon biopsy. The specimen consists of three irregular fragments of light foster soft tissue that in aggregate measure 0.3 to 0.7 cm. The specimen is totally submitted in one cassette. C. Received in fixative is one container labeled with the patient's name and designated Sigmoid colon polyp. The specimen consists of 3 foster-red granular portions of tissue 0.7 x 0.3 x 0.2 cm to 1.5 x 0.9 x 0.8 cm. Each portion has an identifiable resection margin which are differentially inked (black, green, and orange). The 2 larger portions of tissue are sectioned. Entirely submitted in 3 cassettes. MIJanice 05/22/2025 CPT:56694l6
--- NOTE | 2025-05-19 14:27 | PCM.HP.STD ---
HPI - General General Date of Admission: 05/19/25 Date of Service: 05/19/25 Chief Complaint: Dysphagia HPI Narrative RAISA CHURCH, is a 29 F who presents for the evaluation of dysphagia and bright red blood per rectum. *[facility] established 05.03.25 pt presents with history of acid reflux and blood in stool. Pt reports her primary care put her on pantoprazole and pepcid which has been helpful for her acid reflux; still feels as though something is lodged in her esophagus. Pt reports BRBPR every time she has a bm. CBC W/Diff, Automated Today K76.0 - Fatty (change of) liver, not elsewhere classified, R19.7 - Diarrhea, unspecified Ferritin Today R19.7 - Diarrhea, unspecified MUSTAPHA + Protein Elect, Serum Today R19.7 - Diarrhea, unspecified Celiac Disease Profile Today R19.7 - Diarrhea, unspecified LDH Today R19.7 - Diarrhea, unspecified ANCA Today R19.7 - Diarrhea, unspecified Comprehensive Metabolic Profil Today R19.7 - Diarrhea, unspecified CRP Today R19.7 - Diarrhea, unspecified Erythrocyte Sed Rate Today R19.7 - Diarrhea, unspecified Immunoglobulins G/A/M/E Today R19.7 - Diarrhea, unspecified Calprotectin, Stool Today R19.7 - Diarrhea, unspecified Quantiferon TB-Gold+ Today R19.7 - Diarrhea, unspecified Stool Lactoferrin/WBC Today K58.9 - Irritable bowel syndrome, unspecified, R19.7 - Diarrhea, unspecified ENTERIC PATHOGEN PANEL STOOL Today K58.9 - Irritable bowel syndrome, unspecified, R19.7 - Diarrhea, unspecified CDIFF (PCR) Today R19.7 - Diarrhea, unspecified Pancreatic Elastase, Fecal Today R19.7 - Diarrhea, unspecified OVA+PARA w/Giardia EIA [id number] Today R19.7 - Diarrhea, unspecified Stool Occult Blood iFOB Today R19.7 - Diarrhea, unspecified Fecal Fat, Qualitative Today R19.7 - Diarrhea, unspecified Thyroid Stim Hormone (TSH) Today R19.7 - Diarrhea, unspecified Anti-Parietal Cell AB, QN Today R19.7 - Diarrhea, unspecified Gastrin, Serum Today R19.7 - Diarrhea, unspecified Uric Acid Today R19.7 - Diarrhea, unspecified ABD Limited w/ Elastography Today R19.7 - Diarrhea, unspecified IBD Expanded Profile Today R19.7 - Diarrhea, unspecified Allergen, Food Profile Today R19.7 - Diarrhea, unspecified PFSH Medical History Back pain Migraine headache Umbilical hernia Scoliosis GERD (gastroesophageal reflux disease) Fatty liver Pulmonary nodule Tobacco abuse Home Medications ?Medication ?Instructions ?Recorded ?Last Taken ?Type acetaminophen 325 mg capsule 325 mg PO Q4-6H PRN pain 05/03/25 Unknown History famotidine 20 mg tablet 20 mg PO QDAY 05/03/25 Unknown History ibuprofen 600 mg tablet 600 mg PO Q8H PRN pain 05/03/25 Unknown History multivitamin 1 tab PO QDAY 05/03/25 Unknown History pantoprazole 40 mg tablet,delayed 40 mg PO QDAY 05/03/25 Unknown History release Lactobacillus acidophilus 10 100 mmu cells PO DAILY 05/18/25 Unknown History billion cell capsule (Probacap) Allergy/AdvReac Type Severity Reaction Status Date / Time tramadol AdvReac Unknown dizziness Verified 05/19/25 13:19 Family History Father Diabetes Grandmother Leukemia Grandfather Diabetes Mother Lymphoma Leukemia [place] cell cancer CVA (cerebral vascular accident) Aunt Breast cancer Cancer lung cancer Uncle Leukemia Uncle Lung cancer Uncle Throat cancer Tongue cancer Uncle Prostate cancer Stomach cancer Surgical History H/O colonoscopy S/P cholecystectomy H/O tubal ligation History of tonsillectomy Social History household members: spouse housing: house current occupational status: unemployed Smoking Status: Former smoker alcohol intake: never substance use type: does not use ROS Constitutional Constitutional: Denies fatigue, fever(s), poor appetite, weight gain or weight loss Gastrointestinal Gastrointestinal: Denies belching, bloating, change in bowel habits, change in stool character, chewing difficulty, coffee ground emesis, constipation, cramping, diarrhea, dyspepsia, dysphagia, early satiety, excessive flatus, fecal incontinence, heartburn, hematemesis, hematochezia, hemorrhoids, loose stools, melena, nausea, odynophagia, rectal bleeding, tenesmus, vomiting or weight changes Vital Signs Vital Signs Vital Signs: 05/19/25 13:20 05/19/25 13:20 Temperature 98.2 F Temperature Source Temporal Pulse Rate 93 Respiratory Rate 16 Respiratory Pattern Normal Blood Pressure 121/66 H Blood Pressure Mean 84 Blood Pressure Source Monitor Blood Pressure Position Semi-Fowlers Blood Pressure Location Left Arm Pulse Ox 99 Oxygen Delivery Method Room Air Weight Weight: 261 lb Body Mass Index (BMI) 43.4 Physical Exam Const alert, oriented x3, no apparent distress and healthy appearing General Appearance: cooperative GI normal to inspection, nondistended, normoactive bowel sounds, soft to palpation, non-tender and non-distended Percussion: normal to percussion Rectal Exam: deferred Assessment & Plan Assessment/Plan (1) Dysphagia: (2) Diarrhea: PLAN: Assessment and Plan Assessment and Plan (1) Gastroesophageal reflux disease: (2) Fatty liver: Status: Acute Plan: We will order an official elastography, hemoglobin A1c, ESR, CRP (3) Diarrhea: Status: Acute Plan: Differential diagnosis for her diarrhea does include IBS with diarrhea, exocrine pancreatic insufficiency, secretory diarrhea secondary to inflammatory bowel disease, lymphocytic colitis, microscopic lightest, collagenous colitis. She will undergo stool testing and biochemical workup for autoimmune disease along with colonoscopy with biopsies. (4) Dysphagia: Status: Acute Plan: Barium esophagram 02/26/2025: The esophagus is unremarkable. No evidence of mass lesion. No evidence of gastroesophageal reflux. No evidence of obstruction. The patient ingested a 12 mm tablet the barium without any difficulty. RAD/Esophagus Dual Contrast IMPRESSION: Unremarkable dual contrast esophagram barium swallow. CT/Chest without Contrast: 11/28/2020 IMPRESSION: 5 mm noncalcified nodule in the posterior segment of the right lower lobe as seen on axial image #59. A 12 month follow-up is recommended. Fatty infiltration of the liver. Recommend follow-up CT scan of the chest regarding 5 mm noncalcified nodule as seen on previous imaging EGD with Edouard to evaluate upper GI tract for eosinophilic esophagitis, gastroesophageal reflux disease, esophageal motility disorder Orders: Orders CBC W/Diff, Automated Today K76.0 - Fatty (change of) liver, not elsewhere classified, R19.7 - Diarrhea, unspecified Ferritin Today R19.7 - Diarrhea, unspecified MUSTAPHA + Protein Elect, Serum Today R19.7 - Diarrhea, unspecified Celiac Disease Profile Today R19.7 - Diarrhea, unspecified LDH Today R19.7 - Diarrhea, unspecified ANCA Today R19.7 - Diarrhea, unspecified Comprehensive Metabolic Profil Today R19.7 - Diarrhea, unspecified CRP Today R19.7 - Diarrhea, unspecified Erythrocyte Sed Rate Today R19.7 - Diarrhea, unspecified Immunoglobulins G/A/M/E Today R19.7 - Diarrhea, unspecified Calprotectin, Stool Today R19.7 - Diarrhea, unspecified Quantiferon TB-Gold+ Today R19.7 - Diarrhea, unspecified Stool Lactoferrin/WBC Today K58.9 - Irritable bowel syndrome, unspecified, R19.7 - Diarrhea, unspecified ENTERIC PATHOGEN PANEL STOOL Today K58.9 - Irritable bowel syndrome, unspecified, R19.7 - Diarrhea, unspecified CDIFF (PCR) Today R19.7 - Diarrhea, unspecified Pancreatic Elastase, Fecal Today R19.7 - Diarrhea, unspecified OVA+PARA w/Giardia EIA [id number] Today R19.7 - Diarrhea, unspecified Stool Occult Blood iFOB Today R19.7 - Diarrhea, unspecified Fecal Fat, Qualitative Today R19.7 - Diarrhea, unspecified Thyroid Stim Hormone (TSH) Today R19.7 - Diarrhea, unspecified Anti-Parietal Cell AB, QN Today R19.7 - Diarrhea, unspecified Gastrin, Serum Today R19.7 - Diarrhea, unspecified Uric Acid Today R19.7 - Diarrhea, unspecified ABD Limited w/ Elastography Today R19.7 - Diarrhea, unspecified IBD Expanded Profile Today R19.7 - Diarrhea, unspecified Allergen, Food Profile Today R19.7 - Diarrhea, unspecified
--- NOTE | 2025-05-19 15:17 | PCM.POST.ANE ---
Anesthesia: Postop Eval I Current Vital Signs Temperature: 97.5 F Pulse Rate: 80 Blood Pressure: 100/65 Respiratory Rate: 16 Pulse Ox: 98 Oxygen Delivery Method: Room Air Assessment Airway patent: Yes Spontaneous unlabored respirations: Yes Mental status: Asleep nausea: No Vomiting: No Anesthesia Complication: No Fluid Hydration Crystalloid volume administer (ml): 600 Total IV fluid infused: 600 Progress Note Anesthesia document: Postop Eval 1 completed: Yes
--- NOTE | 2025-05-19 15:43 | PCM.POSTANE2 ---
Anesthesia Postop Eval I Sum Postop Eval Completion status Anesthesia document: Postop Eval 1 completed: Yes Anesthesia Postop Eval I Summary Anesthesia Postop Eval I Summary: Anesthesia Postop Eval I: Assessment Summary Airway patent Yes 05/19/25 15:18 [email or web address] Spontaneous unlabored Yes 05/19/25 15:18 [email or web address] respirations Mental status Asleep 05/19/25 15:18 [email or web address] nausea No 05/19/25 15:18 [email or web address] Vomiting No 05/19/25 15:18 [email or web address] Anesthesia Postop Eval I: Fluid Summary Crystalloid volume administer 600 05/19/25 15:18 [email or web address] (ml) Colloids volume administered ( ml) Blood Product volume administered (ml) Total IV fluid infused 600 05/19/25 15:18 [email or web address] Anesthesia Postop Eval I: Summary Notes Anesthesia Complication No 05/19/25 15:18 [email or web address] Anesthesia Complication Comment: Post-operative progress note Anesthesia: Postop Eval II Evaluation Mental status: Awake Pain Level: 0 nausea: No Vomiting: No
--- NOTE | 2025-05-19 16:01 | OP.CCLET_ITS ---
05/22/2025 No Primary Care Physician Re : Colonoscopy procedure for Danay Sanders Dear Care Physician This procedure was performed on Monday, May 19, 2025. My impressions and recommendations are as follows: Impressions : - One 20 mm polyp at the recto-sigmoid colon, removed with a hot snare. Resected and retrieved. - Congested mucosa in the recto-sigmoid colon, at the splenic flexure and at the hepatic flexure. Biopsied. - The examined portion of the ileum was normal. Biopsied. Recommendations : - Discharge patient to home. - Resume previous diet. - Continue present medications. - Await pathology results. - Repeat colonoscopy in 1 year for surveillance. My findings are described in the full procedure note, which is enclosed. If I can be of further assistance, please feel free to contact me at . Sincerely, Addison Ac, 05/19/2025 4:01:10 PM This report has been signed electronically.
--- NOTE | 2025-05-19 16:01 | OP.COLON_ITS ---
Patient Name: Danay Sanders Procedure Date: 05/19/2025 2:32 PM Date of : 1995 Age: 29 Procedure: Colonoscopy Indications: Hematochezia Providers: Addison Ac DO Medicines: Monitored Anesthesia Care Patient Profile: This is a 29 year old female. Refer to note in patient chart for documentation of history and physical. Last Colonoscopy: none. The patient's first colonoscopy is today. Complications: No immediate complications. Procedure: Pre-Anesthesia Assessment: - Prior to the procedure, a History and Physical was performed, and patient medications and allergies were reviewed. The patient is competent. The risks and benefits of the procedure and the sedation options and risks were discussed with the patient. All questions were answered and informed consent was obtained. Patient identification and proposed procedure were verified by the physician in the pre-procedure area. Mental Status Examination: alert and oriented. Airway Examination: normal oropharyngeal airway and neck mobility. Respiratory Examination: clear to auscultation. CV Examination: normal. Prophylactic Antibiotics: The patient does not require prophylactic antibiotics. Prior Anticoagulants: The patient has taken no anticoagulant or antiplatelet agents. ASA Grade Assessment: II - A patient with mild systemic disease. After reviewing the risks and benefits, the patient was deemed in satisfactory condition to undergo the procedure. The anesthesia plan was to use monitored anesthesia care (MAC). Immediately prior to administration of medications, the patient was re-assessed for adequacy to receive sedatives. The heart rate, respiratory rate, oxygen saturations, blood pressure, adequacy of pulmonary ventilation, and response to care were monitored throughout the procedure. The physical status of the patient was re-assessed after the procedure. After I obtained informed consent, the scope was passed under direct vision. Throughout the procedure, the patient's blood pressure, pulse, and oxygen saturations were monitored continuously. The Colonoscope was introduced through the anus and advanced to the terminal ileum. The colonoscopy was performed without difficulty. The patient tolerated the procedure well. The quality of the bowel preparation was good. The terminal ileum, ileocecal valve, appendiceal orifice, and rectum were photographed. Scope In: 2:48:14 PM Scope Withdrawal Time 0 hours 14 minutes 25 seconds Scope Out: 3:07:13 PM Total Procedure Duration Time 0 hours 18 minutes 59 seconds Findings: The perianal and digital rectal examinations were normal. A 20 mm polyp was found in the recto-sigmoid colon. The polyp was semi-pedunculated. The polyp was removed with a hot snare. Resection and retrieval were complete. An area of mildly congested mucosa was found in the recto-sigmoid colon, at the splenic flexure and at the hepatic flexure. Biopsies were taken with a cold forceps for histology. Verification of patient identification for the specimen was done. Estimated blood loss was minimal. The terminal ileum appeared normal. Biopsies were taken with a cold forceps for histology. Impression: - One 20 mm polyp at the recto-sigmoid colon, removed with a hot snare. Resected and retrieved. - Congested mucosa in the recto-sigmoid colon, at the splenic flexure and at the hepatic flexure. Biopsied. - The examined portion of the ileum was normal. Biopsied. Recommendation: - Discharge patient to home. - Resume previous diet. - Continue present medications. - Await pathology results. - Repeat colonoscopy in 1 year for surveillance. Procedure Code(s): --- Professional --- 00817, Colonoscopy, flexible; with removal of tumor(s), polyp(s), or other lesion(s) by snare technique 99350, 59, Colonoscopy, flexible; with biopsy, single or multiple CPT copyright 2021 [employer]. All rights reserved. The codes documented in this report are preliminary and upon machine adjuster leader case trim review may be revised to meet current compliance requirements. Addison Ac DO 05/19/2025 4:01:10 PM This report has been signed electronically. Number of Addenda: 0 Note Initiated On: 05/19/2025 2:32 PM
== END 2025-05-19 16:04 | disposition home or self-care (01) ==
LOC: EN 13:02 → AC 13:03
PROVIDERS: Referring Provider Internal Medicine Gastroenterology; Visit Provider Internal Medicine Gastroenterology
PROC: 0DJD8ZZ Inspection of Lower Intestinal Tract, Via Natural or Artificial Opening Endoscopic (ICD-10-PCS; CPT 45378; principal; 2025-05-19 13:55)
DX: D12.5 Benign neoplasm of sigmoid colon (principal); K63.5 Polyp of colon; Z87.891 Personal history of nicotine dependence; K76.0 Fatty (change of) liver, not elsewhere classified; K21.9 Gastro-esophageal reflux disease without esophagitis; Z79.899 Other long term (current) drug therapy; K58.9 Irritable bowel syndrome, unspecified
CPT/HCPCS: 45380; 45385; 88305; J2405